=== PATIENT | female | born 1955 | race Asian ===

== ENCOUNTER 2017-10-21 07:53 | Day surgery (SDC) | payer OTHER ==
[~2017-10-21] VITALS: Ht 160 cm; Wt 55.6 kg
[~2017-10-21 07:53] MED LIST: CLOB.05TO; GLIM2; LEVSOD100; LOVA40; METF500; Omeprazole20 M1; PIOG15; RANI150
[2017-10-21] MEDS ORDERED: RANI150 (08:27)
[2017-10-21] MEDS ORDERED: SITA100T2 (08:28)
[2017-10-21] MEDS ORDERED: LANSOPRAZOLE15 MG (08:28)
== END 2017-10-21 10:32 | disposition home or self-care (01) ==
LOC: ORSCSDS 07:53
PROVIDERS: Internal Medicine Gastroenterology
PROC: 0DB68ZX Excision of Stomach, Via Natural or Artificial Opening Endoscopic, Diagnostic (ICD-10-PCS; principal; 2017-10-21 09:15)
PROC: 0DBN8ZX Excision of Sigmoid Colon, Via Natural or Artificial Opening Endoscopic, Diagnostic (ICD-10-PCS; principal; 2017-10-21 09:15)
PROC: 0DB98ZX Excision of Duodenum, Via Natural or Artificial Opening Endoscopic, Diagnostic (ICD-10-PCS; principal; 2017-10-21 09:15)
PROC: 0DBK8ZX Excision of Ascending Colon, Via Natural or Artificial Opening Endoscopic, Diagnostic (ICD-10-PCS; principal; 2017-10-21 09:15)
PROC: 0DBL8ZX Excision of Transverse Colon, Via Natural or Artificial Opening Endoscopic, Diagnostic (ICD-10-PCS; principal; 2017-10-21 09:15)
PROC: 0DBP8ZX Excision of Rectum, Via Natural or Artificial Opening Endoscopic, Diagnostic (ICD-10-PCS; principal; 2017-10-21 09:15)
DX: D50.9 Iron deficiency anemia, unspecified (principal); K31.7 Polyp of stomach and duodenum; K25.9 Gastric ulcer, unspecified as acute or chronic, without hemorrhage or perforation; D12.3 Benign neoplasm of transverse colon; D12.2 Benign neoplasm of ascending colon; D12.5 Benign neoplasm of sigmoid colon; D12.8 Benign neoplasm of rectum; K57.30 Diverticulosis of large intestine without perforation or abscess without bleeding; K64.8 Other hemorrhoids; E11.9 Type 2 diabetes mellitus without complications; Z79.899 Other long term (current) drug therapy
CPT/HCPCS: 82947; 88305; 88341; 88342; J0330; J2405; J7120

== ENCOUNTER → 2017-11-05 | Outpatient (CLI) | payer OTHER ==
[~2017-11-05] MED LIST changes: +LANSOPRAZOLE15 MG; +SITA100T2
== END | disposition home or self-care (01) ==
LOC: LAB EV 08:45
DX: D50.9 Iron deficiency anemia, unspecified (principal)
CPT/HCPCS: 87177; 87209

== ENCOUNTER 2018-12-06 08:50 | Day surgery (SDC) | payer OTHER ==
[~2018-12-06] VITALS: Ht 160 cm; Wt 56.4 kg
== END 2018-12-06 10:38 | disposition home or self-care (01) ==
LOC: ORSCSDS 08:50
PROVIDERS: Internal Medicine Gastroenterology
PROC: 0DB98ZX Excision of Duodenum, Via Natural or Artificial Opening Endoscopic, Diagnostic (ICD-10-PCS; principal; 2018-12-06 10:15)
PROC: 0DB68ZX Excision of Stomach, Via Natural or Artificial Opening Endoscopic, Diagnostic (ICD-10-PCS; principal; 2018-12-06 10:15)
DX: K29.70 Gastritis, unspecified, without bleeding (principal); K31.7 Polyp of stomach and duodenum; K30 Functional dyspepsia; E11.9 Type 2 diabetes mellitus without complications; E03.9 Hypothyroidism, unspecified; Z80.0 Family history of malignant neoplasm of digestive organs; Z79.899 Other long term (current) drug therapy
CPT/HCPCS: 82947; 88305; 88341; 88342; J2704; J7120

== ENCOUNTER → 2020-08-08 | Outpatient (CLI) | payer OTHER ==
[2020-08-08 13:50] LABS: BASOPHILS ABSOLUTE AUTO 0.03 K/mm3 (0.00-0.23); BASOPHILS PERCENT AUTO 0 % (0-2); EOSINOPHILS ABSOLUTE AUTO 0.14 K/mm3 (0.00-0.68); EOSINOPHILS PERCENT AUTO 2 % (0-6); Hematocrit 36.6 % (33.0-51.0); Hemoglobin 12.3 g/dL (11.5-16.0); IMMATURE GRAN ABSOLUTE AUTO 0.06 K/mm3 (0.00-0.10); IMMATURE GRAN PERCENT AUTO 1 % (0-1); LYMPHOCYTES ABSOLUTE AUTO 3.49 K/mm3 (0.84-5.20); LYMPHOCYTES PERCENT AUTO 44 % (21-46); MONOCYTES PERCENT AUTO 6 % (4-13); Mean Corpuscular HGB 30.1 pg (26.0-34.0); Mean Corpuscular HGB Conc 33.6 g/dL (31.5-36.5); Mean Corpuscular Volume 90 fL (80-100); Mean Platelet Volume 10.2 fL (9.1-12.4); NEUTROPHILS ABSOLUTE AUTO 3.76 K/mm3 (1.96-9.15); NEUTROPHILS PERCENT AUTO 47 % (41-73); Platelet Count 225 K/mm3 (150-400); RDW Standard Deviation 42.2 fL (35.1-46.3); Red Blood Cell Count 4.09 M/mm3 (3.80-5.20); White Blood Cell Count 7.98 K/mm3 (4.00-11.30)
[2020-08-08 14:26] LABS: Alanine Aminotransfer (ALT/SGP 41 U/L (12-78); Albumin, Blood 3.7 g/dL (3.4-5.0); Alk Phos 88 U/L (50-136); Anion Gap 8 mmol/L (6-16); Aspartate Aminotrans (AST/SGOT 62 U/L (12-37); Bilirubin, Total 0.4 mg/dL (0.1-1.0); Blood Urea Nitrogen 9 mg/dL (8-24); Bun/Creatinine Ratio 12.5 (12.0-20.0); CO2, Blood 24 mmol/L (21-32); Calcium, Blood 9.1 mg/dL (8.5-10.1); Chloride, Blood 102 mmol/L (98-108); Creatinine, Blood 0.72 mg/dL (0.40-1.00); Globulin, Blood 3.8 g/dL (2.2-4.0); Glomerular Filtration Rate >60 (60-); Glucose, Blood 182 mg/dL (70-99); Potassium, Blood 4.2 mmol/L (3.5-5.5); Sodium, Blood 134 mmol/L (136-145); Total Protein, Blood 7.5 g/dL (6.4-8.2); Troponin I <0.015 ng/mL (0.000-0.040)
== END ==
LOC: PLD 13:43 → LAB SHORT 13:43
PROVIDERS: Physician Assistant
DX: R07.9 Chest pain, unspecified (principal); R53.83 Other fatigue
CPT/HCPCS: 80053; 83690; 84484; 85025; 85379

== ENCOUNTER → 2022-12-01 | Outpatient (CLI) | payer OTHER | END | disposition home or self-care (01) | LOC: LAB SHORT 14:41 → LAB 14:41 | DX: N39.0 Urinary tract infection, site not specified (principal) | CPT/HCPCS: 87077; 87086; 87186 ==

== ENCOUNTER 2022-12-26 12:04 | Emergency (ER) | payer OTHER ==
[~2022-12-26] VITALS: Ht 160 cm; Wt 54.4 kg
[~2022-12-26 12:04] MED LIST changes: +LEVAQUIN750 MG PO
[2022-12-26 12:55] LABS: BASOPHILS ABSOLUTE AUTO 0.02 K/mm3 (0.00-0.23); BASOPHILS PERCENT AUTO 0 % (0-2); EOSINOPHILS ABSOLUTE AUTO 0.06 K/mm3 (0.00-0.68); EOSINOPHILS PERCENT AUTO 1 % (0-6); Hematocrit 31.1 % (33.0-51.0); Hemoglobin 10.5 g/dL (11.5-16.0); IMMATURE GRAN ABSOLUTE AUTO 0.06 K/mm3 (0.00-0.10); IMMATURE GRAN PERCENT AUTO 1 % (0-1); LYMPHOCYTES ABSOLUTE AUTO 2.19 K/mm3 (0.84-5.20); LYMPHOCYTES PERCENT AUTO 26 % (21-46); MONOCYTES ABSOLUTE AUTO 0.53 K/mm3 (0.16-1.47); MONOCYTES PERCENT AUTO 6 % (4-13); Mean Corpuscular HGB 27.3 pg (26.0-34.0); Mean Corpuscular HGB Conc 33.8 g/dL (31.5-36.5); Mean Corpuscular Volume 81 fL (80-100); Mean Platelet Volume 9.5 fL (9.1-12.4); NEUTROPHILS ABSOLUTE AUTO 5.71 K/mm3 (1.96-9.15); NEUTROPHILS PERCENT AUTO 67 % (41-73); Platelet Count 295 K/mm3 (150-400); RDW Coefficient Variation 14.5 % (11.7-14.2); RDW Standard Deviation 43.1 fL (35.1-46.3); Red Blood Cell Count 3.84 M/mm3 (3.80-5.20); White Blood Cell Count 8.57 K/mm3 (4.00-11.30)
[2022-12-26 13:15] LABS: Albumin, Blood 3.4 g/dL (3.4-5.0); Albumin/Globulin Ratio 0.8 (0.8-1.8); Bilirubin, Total 0.4 mg/dL (0.1-1.0); Bun/Creatinine Ratio 15.9 (12.0-20.0); Calcium, Blood 9.4 mg/dL (8.5-10.1); Creatinine, Blood 0.88 mg/dL (0.40-1.00); Globulin, Blood 4.5 g/dL (2.2-4.0); Potassium, Blood 4.2 mmol/L (3.5-5.5); Total Protein, Blood 7.9 g/dL (6.4-8.2)
[2022-12-26 14:09] LABS: Source, Urine Voided
[2022-12-26 14:18] LABS: Bilirubin, Urine Neg (Neg); Blood, Urine Neg (Neg); Color, Urine Yellow (P-Yellow); Glucose Qualitative, Urine 1+ (Neg); Ketones, Urine Neg (Neg); Leukocyte Esterase, Urine 1+ (Neg); Nitrite, Urine Neg (Neg); Protein, Urine Neg (Neg); Urobilinogen, Urine NORM (Normal)
[2022-12-26 14:26] LABS: Influenza A, PCR NEGATIVE (NEGATIVE); Influenza B, PCR NEGATIVE (NEGATIVE); Resp Syncytial Virus, PCR NEGATIVE (NEGATIVE); SARS-Cov-2 (COVID-19) PCR, MMC NEGATIVE (NEGATIVE)
[2022-12-26 14:37] LABS: Appearance, Urine Clear (Clear); Bacteria Mod /hpf; Red Blood Cells, Urine 0-2 /hpf (0-2); Squamous Epithelial Cells Rare /hpf (Few); White Blood Cells, Urine 0-2 /hpf (0-5)
[2022-12-26] MEDS ORDERED: HYDHCL25 PO (15:48)
[2022-12-26 15:50] VITALS: BP 124/79
== END 2022-12-26 16:02 | disposition home or self-care (01) ==
LOC: ER 12:04
PROVIDERS: Emergency Medicine
DX: R06.02 Shortness of breath (principal); E03.9 Hypothyroidism, unspecified; E11.9 Type 2 diabetes mellitus without complications; E78.5 Hyperlipidemia, unspecified; Z20.822 Contact with and (suspected) exposure to COVID-19; Z79.890 Hormone replacement therapy; Z79.84 Long term (current) use of oral hypoglycemic drugs
CPT/HCPCS: 0241U; 71045; 80053; 81001; 83880; 84484; 85025; 85379; 87086; 93005; 93010; 99284-25

== ENCOUNTER → 2023-01-01 | Outpatient (CLI) | payer OTHER ==
[~2023-01-01] MED LIST changes: +HYDHCL25 PO
== END | disposition home or self-care (01) ==
LOC: LAB 16:54 → LAB SHORT 16:54
DX: N39.0 Urinary tract infection, site not specified (principal)
CPT/HCPCS: 87086

== ENCOUNTER → 2023-10-12 | Outpatient (CLI) | payer OTHER ==
[~2023-10-12] MED LIST changes: +AMOCLA875 PO; +Amoxicillin500 MG PO; +LANS15EC PO; -LANSOPRAZOLE15 MG; +LANSOPRAZOLE15 MG PO; +LEVSOD75 PO; +LOSA25 PO; -LOVA40; +LOVA40 PO; -METF500; +METF500 PO; +NYSTATIN100000 U13 PO; -PIOG15; +PIOG15 PO; +TOUJEO MAX300 UNIT/2
[2023-10-12 11:05] LABS: Source, Urine Clean Catch
[2023-10-12 11:19] LABS: Bacteria Not Seen /hpf; Red Blood Cells, Urine Not Seen /hpf (0-2); Squamous Epithelial Cells Few /hpf (Few); White Blood Cells, Urine 0-2 /hpf (0-5)
== END | disposition home or self-care (01) ==
LOC: LAB 11:03 → LAB SHORT 11:03
PROVIDERS: Physician Assistant Medical
DX: R30.0 Dysuria (principal)
CPT/HCPCS: 81015

== ENCOUNTER 2023-10-27 13:12 | Emergency (ER) | payer OTHER ==
[~2023-10-27] VITALS: Ht 160 cm; Wt 54.4 kg
[~2023-10-27 13:12] MED LIST changes: -AMOCLA875 PO; -Amoxicillin500 MG PO; -LANS15EC PO; -LEVSOD75 PO; -LOSA25 PO; -NYSTATIN100000 U13 PO; -TOUJEO MAX300 UNIT/2
[2023-10-27 13:21] VITALS: BP 181/95
[2023-10-27] MEDS ORDERED: Amoxicillin500 MG PO (13:30)
[2023-10-27] MEDS ORDERED: NYSTATIN100000 U13 PO (13:38)
[2023-10-27] MEDS ORDERED: AMOCLA875 PO (13:53)
[2023-10-27] MEDS ORDERED: LEVSOD75 PO (14:29)
[2023-10-27] MEDS ORDERED: LOSA25 PO (14:29)
[2023-10-27] MEDS ORDERED: LANS15EC PO (14:29)
[2023-10-27] MEDS ORDERED: TOUJEO MAX300 UNIT/2 (14:29)
== END 2023-10-27 13:44 | disposition home or self-care (01) ==
LOC: ER 13:12
DX: B37.0 Candidal stomatitis (principal); K04.7 Periapical abscess without sinus; Z79.899 Other long term (current) drug therapy; Z79.84 Long term (current) use of oral hypoglycemic drugs; Z79.4 Long term (current) use of insulin; E03.9 Hypothyroidism, unspecified; E11.9 Type 2 diabetes mellitus without complications; E78.5 Hyperlipidemia, unspecified
CPT/HCPCS: 99282

== ENCOUNTER → 2023-12-16 | Outpatient (CLI) | payer OTHER ==
[~2023-12-16] MED LIST changes: +AMOCLA875 PO; +Amoxicillin500 MG PO; +LANS15EC PO; +LEVSOD75 PO; +LOSA25 PO; +NYSTATIN100000 U13 PO; +TOUJEO MAX300 UNIT/2
[2023-12-16 16:11] LABS: BASOPHILS ABSOLUTE AUTO 0.03 K/mm3 (0.00-0.23); BASOPHILS PERCENT AUTO 0 % (0-2); EOSINOPHILS ABSOLUTE AUTO 0.12 K/mm3 (0.00-0.68); EOSINOPHILS PERCENT AUTO 1 % (0-6); Hematocrit 31.6 % (33.0-51.0); Hemoglobin 10.4 g/dL (11.5-16.0); IMMATURE GRAN ABSOLUTE AUTO 0.07 K/mm3 (0.00-0.10); IMMATURE GRAN PERCENT AUTO 1 % (0-1); LYMPHOCYTES ABSOLUTE AUTO 3.11 K/mm3 (0.84-5.20); LYMPHOCYTES PERCENT AUTO 29 % (21-46); MONOCYTES ABSOLUTE AUTO 0.72 K/mm3 (0.16-1.47); MONOCYTES PERCENT AUTO 7 % (4-13); Mean Corpuscular HGB 30.5 pg (26.0-34.0); Mean Corpuscular HGB Conc 32.9 g/dL (31.5-36.5); Mean Corpuscular Volume 93 fL (80-100); Mean Platelet Volume 9.3 fL (9.1-12.4); NEUTROPHILS ABSOLUTE AUTO 6.66 K/mm3 (1.96-9.15); NEUTROPHILS PERCENT AUTO 62 % (41-73); Platelet Count 407 K/mm3 (150-400); RDW Coefficient Variation 13.7 % (11.7-14.2); RDW Standard Deviation 44.7 fL (35.1-46.3); Red Blood Cell Count 3.41 M/mm3 (3.80-5.20); White Blood Cell Count 10.71 K/mm3 (4.00-11.30)
[2023-12-16 16:27] LABS: Albumin, Blood 3.6 g/dL (3.4-5.0); Albumin/Globulin Ratio 0.7 (0.8-1.8); Bilirubin, Total 0.3 mg/dL (0.1-1.0); Bun/Creatinine Ratio 23.7 (12.0-20.0); Calcium, Blood 9.9 mg/dL (8.5-10.1); Creatinine, Blood 1.35 mg/dL (0.40-1.00); Globulin, Blood 4.9 g/dL (2.2-4.0); Potassium, Blood 4.5 mmol/L (3.5-5.5); Total Protein, Blood 8.5 g/dL (6.4-8.2)
== END ==
LOC: LAB SHORT 16:07 → LAB 16:07
PROVIDERS: Physician Assistant
DX: E86.0 Dehydration (principal)
CPT/HCPCS: 80053; 85025

== ENCOUNTER → 2024-01-16 | Outpatient (CLI) | payer OTHER ==
[2024-01-16 10:44] LABS: BASOPHILS ABSOLUTE AUTO 0.04 K/mm3 (0.00-0.23); BASOPHILS PERCENT AUTO 0 % (0-2); EOSINOPHILS ABSOLUTE AUTO 0.17 K/mm3 (0.00-0.68); EOSINOPHILS PERCENT AUTO 2 % (0-6); Hematocrit 31.9 % (33.0-51.0); Hemoglobin 10.2 g/dL (11.5-16.0); IMMATURE GRAN ABSOLUTE AUTO 0.06 K/mm3 (0.00-0.10); IMMATURE GRAN PERCENT AUTO 1 % (0-1); LYMPHOCYTES ABSOLUTE AUTO 1.93 K/mm3 (0.84-5.20); LYMPHOCYTES PERCENT AUTO 19 % (21-46); MONOCYTES ABSOLUTE AUTO 0.69 K/mm3 (0.16-1.47); MONOCYTES PERCENT AUTO 7 % (4-13); Mean Corpuscular HGB 31.3 pg (26.0-34.0); Mean Corpuscular Volume 98 fL (80-100); NEUTROPHILS ABSOLUTE AUTO 7.06 K/mm3 (1.96-9.15); NEUTROPHILS PERCENT AUTO 71 % (41-73); Platelet Count 313 K/mm3 (150-400); RDW Coefficient Variation 15.8 % (11.7-14.2); RDW Standard Deviation 56.5 fL (35.1-46.3); Red Blood Cell Count 3.26 M/mm3 (3.80-5.20); White Blood Cell Count 9.95 K/mm3 (4.00-11.30)
[2024-01-16 10:54] LABS: Albumin, Blood 3.2 g/dL (3.4-5.0); Albumin/Globulin Ratio 0.7 (0.8-1.8); Bilirubin, Total 0.4 mg/dL (0.1-1.0); Calcium, Blood 9.3 mg/dL (8.5-10.1); Creatinine, Blood 1.21 mg/dL (0.40-1.00); Globulin, Blood 4.9 g/dL (2.2-4.0); Magnesium, Blood 1.9 mg/dL (1.6-2.4); Potassium, Blood 4.6 mmol/L (3.5-5.5); Total Protein, Blood 8.1 g/dL (6.4-8.2)
== END | disposition home or self-care (01) ==
LOC: LAB 10:39 → LAB SHORT 10:39
PROVIDERS: Hospitalist
DX: N17.9 Acute kidney failure, unspecified (principal)
CPT/HCPCS: 80053; 83735; 85025

== ENCOUNTER → 2024-03-22 | Outpatient (CLI) | payer OTHER ==
[~2024-03-22] MED LIST changes: +ACET500 PO; +Diflucan100 MG PO; +GABAPENTIN PT; +OMEP20ER PO; +PANT40 PO; +PANTOPRAZOLE SO40 M2; +TRAM50 PO
[2024-03-22 10:09] LABS: BASOPHILS ABSOLUTE AUTO 0.04 K/mm3 (0.00-0.23); BASOPHILS PERCENT AUTO 0 % (0-2); EOSINOPHILS ABSOLUTE AUTO 0.14 K/mm3 (0.00-0.68); EOSINOPHILS PERCENT AUTO 1 % (0-6); Hemoglobin 10.8 g/dL (11.5-16.0); IMMATURE GRAN ABSOLUTE AUTO 0.05 K/mm3 (0.00-0.10); IMMATURE GRAN PERCENT AUTO 0 % (0-1); LYMPHOCYTES ABSOLUTE AUTO 0.87 K/mm3 (0.84-5.20); LYMPHOCYTES PERCENT AUTO 7 % (21-46); MONOCYTES ABSOLUTE AUTO 0.81 K/mm3 (0.16-1.47); MONOCYTES PERCENT AUTO 7 % (4-13); Mean Corpuscular HGB 30.9 pg (26.0-34.0); Mean Corpuscular HGB Conc 33.8 g/dL (31.5-36.5); Mean Corpuscular Volume 91 fL (80-100); Mean Platelet Volume 9.4 fL (9.1-12.4); NEUTROPHILS ABSOLUTE AUTO 9.88 K/mm3 (1.96-9.15); NEUTROPHILS PERCENT AUTO 84 % (41-73); Platelet Count 357 K/mm3 (150-400); RDW Coefficient Variation 12.2 % (11.7-14.2); RDW Standard Deviation 40.6 fL (35.1-46.3); White Blood Cell Count 11.79 K/mm3 (4.00-11.30)
[2024-03-22 10:27] LABS: Albumin, Blood 3.1 g/dL (3.4-5.0); Albumin/Globulin Ratio 0.6 (0.8-1.8); Bilirubin, Total 0.3 mg/dL (0.1-1.0); Bun/Creatinine Ratio 18.3 (12.0-20.0); Calcium, Blood 9.4 mg/dL (8.5-10.1); Creatinine, Blood 1.26 mg/dL (0.40-1.00); Globulin, Blood 5.1 g/dL (2.2-4.0); Potassium, Blood 4.4 mmol/L (3.5-5.5); Thyroid Stimulating Hormone 4.524 uIU/mL (0.360-4.800); Total Protein, Blood 8.2 g/dL (6.4-8.2)
[2024-03-22 10:33] LABS: Bun/Creatinine Ratio 19.4 (12.0-20.0); Calcium, Blood 9.4 mg/dL (8.5-10.1); Creatinine, Blood 1.24 mg/dL (0.40-1.00); Potassium, Blood 4.4 mmol/L (3.5-5.5)
[2024-03-22 11:59] LABS: Hematocrit 32.5 % (33.0-51.0); Hemoglobin 10.8 g/dL (11.5-16.0); Mean Corpuscular HGB 30.3 pg (26.0-34.0); Mean Corpuscular HGB Conc 33.2 g/dL (31.5-36.5); Mean Corpuscular Volume 91 fL (80-100); Mean Platelet Volume 9.9 fL (9.1-12.4); Platelet Count 379 K/mm3 (150-400); RDW Coefficient Variation 11.9 % (11.7-14.2); RDW Standard Deviation 40.2 fL (35.1-46.3); Red Blood Cell Count 3.56 M/mm3 (3.80-5.20); White Blood Cell Count 12.04 K/mm3 (4.00-11.30)
[2024-03-22 12:14] LABS: International Normalized Ratio 0.97; Prothrombin Time Results 10.4 Sec (9.7-11.5)
[2024-03-22 13:00] LABS: BASOPHILS PERCENT MAN 0 % (0-2); EOSINOPHILS PERCENT MAN 0 % (0-6); LYMPHOCYTES PERCENT MAN 5 % (21-46); MONOCYTES ABSOLUTE MAN 0.36 K/mm3 (0.16-1.47); MONOCYTES PERCENT MAN 3 % (4-13); NEUTROPHILS ABSOLUTE MAN 11.07 K/mm3 (1.96-9.15); SEG NEUTROPHILS PERCENT MAN 92 % (41-73); TOTAL CELLS COUNTED 100
== END ==
LOC: LAB SHORT 10:02 → LAB 10:02
PROVIDERS: Physician Assistant; Student in an Organized Health Care Education/Training Program
DX: E11.69 Type 2 diabetes mellitus with other specified complication (principal); R42 Dizziness and giddiness; R53.83 Other fatigue; C02.9 Malignant neoplasm of tongue, unspecified; R63.8 Other symptoms and signs concerning food and fluid intake
CPT/HCPCS: 80048; 80053; 83036; 83690; 84443; 85007; 85025; 85027; 85610

== ENCOUNTER 2024-03-23 07:59 | Day surgery (SDC) | payer OTHER ==
[~2024-03-23] VITALS: Ht 160 cm; Wt 53.0 kg
[2024-03-23] VITALS (8 sets, daily range): BP systolic 140–167; BP diastolic 77–99
[~2024-03-23 07:59] MED LIST changes: -PANTOPRAZOLE SO40 M2
[2024-03-23] MEDS ORDERED: PANTOPRAZOLE SO40 M2 (08:40)
[2024-03-23] MEDS ORDERED: LORazepam 2 MG/ML 1ML Injection ONE (09:11)
[2024-03-23] MEDS ORDERED: FentaNYL Citrate 50 MCG/ML 2 ML Injection ONE ×2 (09:41→10:22)
[2024-03-23] MEDS ORDERED: Midazolam HCl 1MG / ML 2ML Vial ONE ×2 (09:41→10:21)
[2024-03-23] MEDS ORDERED: NS 1,000 ML IV ONE (09:41)
[2024-03-23] MEDS ORDERED: NS 100 ML IV ONE (10:08)
[2024-03-23] MEDS ORDERED: CeFAZolin Sodium 2,000 MG VIAL ONE (10:08)
[2024-03-23] MEDS ORDERED: Glucagon 1 MG/KIT VIAL IV ONE (10:10)
[2024-03-23] MEDS ORDERED: Lidocaine 2%-Epineph 1:100000 20 ML MDV ONE (10:28)
--- NOTE | 2024-03-23 11:00 | NUR ---
PT BACK TO RECOVERY ROOM. PT DAUGHTER IN LAW AT BEDSIDE. DR ALVARENGA PT AND FAMILY ON PLAN OF CARE AND PROCEDURE.
[2024-03-23] MEDS ORDERED: LORazepam 2 MG/ML 1ML Injection IV ONE (11:30)
--- NOTE | 2024-03-23 12:30 | NUR ---
PT FAMILY EDUCATED ABOUT G TUBE FEEDING AND GIVEN ADDITIONAL SUPPLIES. PT HAS ABDOMIAL DISCOMFORT. DR MARADIAGA NOTIFEID AND PT EDUCATED THAT PAIN IS NORMAL AND SHE CAN TAKE DISSOLVED HOME MEDICATIONS PO NEEDED. IV D/C CATHETER INTACT. 1000 ML NS INFUSION FINISHED. PT DRESSED AND WHEELED OUT TO CAR.
== END 2024-03-23 14:57 | disposition home or self-care (01) ==
LOC: MHTC 07:59
PROC: 0DH63UZ Insertion of Feeding Device into Stomach, Percutaneous Approach (ICD-10-PCS; principal; 2024-03-23)
DX: C02.9 Malignant neoplasm of tongue, unspecified (principal); I12.9 Hypertensive chronic kidney disease with stage 1 through stage 4 chronic kidney disease, or unspecified chronic kidney disease; E11.22 Type 2 diabetes mellitus with diabetic chronic kidney disease; N18.2 Chronic kidney disease, stage 2 (mild); K21.9 Gastro-esophageal reflux disease without esophagitis; E78.5 Hyperlipidemia, unspecified; E03.9 Hypothyroidism, unspecified; Z87.891 Personal history of nicotine dependence; Z88.8 Allergy status to other drugs, medicaments and biological substances; Z79.890 Hormone replacement therapy; Z79.4 Long term (current) use of insulin; Z79.899 Other long term (current) drug therapy
CPT/HCPCS: 82947; 99152; 99153; C1725; C1769; C1887; J0690; J1610; J2060; J2250; J3010; J7030; Q9967

== ENCOUNTER 2024-03-26 02:02 | Day surgery (SDC) | payer OTHER ==
[~2024-03-26 02:02] MED LIST changes: +PANTOPRAZOLE SO40 M2
[2024-03-26] MEDS ORDERED: NS 1,000 ML IV SCH (07:15)
[2024-03-26 09:00] VITALS: BP 167/88
== END 2024-03-26 10:14 | disposition home or self-care (01) ==
LOC: ATC 02:02
DX: C02.9 Malignant neoplasm of tongue, unspecified (principal); R13.10 Dysphagia, unspecified; D46.4 Refractory anemia, unspecified; K21.9 Gastro-esophageal reflux disease without esophagitis; N17.9 Acute kidney failure, unspecified; E11.22 Type 2 diabetes mellitus with diabetic chronic kidney disease; N18.2 Chronic kidney disease, stage 2 (mild); E03.9 Hypothyroidism, unspecified; E78.5 Hyperlipidemia, unspecified; Z79.899 Other long term (current) drug therapy; Z79.84 Long term (current) use of oral hypoglycemic drugs
CPT/HCPCS: 96360; J7030

== ENCOUNTER → 2024-04-07 | Outpatient (CLI) | payer OTHER ==
[2024-04-07 14:38] LABS: Creatinine, Urine Random 74.4 mg/dL (27.00-270.00)
[2024-04-07 14:40] LABS: Microalb/Creat Ratio UR, Rand 63.575 mg/g (0.000-30.000); Microalbumin, Random Urine 47.3 mg/L (0.000-20.000)
== END ==
LOC: LAB 10:40 → LAB SHORT 10:40
PROVIDERS: Family Medicine
DX: E11.59 Type 2 diabetes mellitus with other circulatory complications (principal); E11.29 Type 2 diabetes mellitus with other diabetic kidney complication; E11.22 Type 2 diabetes mellitus with diabetic chronic kidney disease; Z79.4 Long term (current) use of insulin
CPT/HCPCS: 82043; 82570

== ENCOUNTER 2024-04-09 01:13 | Day surgery (SDC) | payer OTHER ==
[2024-04-09] MEDS ORDERED: NS 1,000 ML IV SCH (07:55)
[2024-04-09 08:28] VITALS: BP 153/80
== END 2024-04-09 09:45 | disposition home or self-care (01) ==
LOC: ATC 01:13
DX: C02.9 Malignant neoplasm of tongue, unspecified (principal); R13.10 Dysphagia, unspecified; D46.4 Refractory anemia, unspecified; Z79.84 Long term (current) use of oral hypoglycemic drugs; Z79.899 Other long term (current) drug therapy; Z88.8 Allergy status to other drugs, medicaments and biological substances
CPT/HCPCS: 96360; J7030

== ENCOUNTER 2024-08-30 10:33 | Day surgery (SDC) | payer OTHER ==
[~2024-08-30] VITALS: Ht 160 cm; Wt 55.3 kg
[~2024-08-30 10:33] MED LIST changes: +INSULANPEN SC; +NOVOLOG FL100 UNIT/3 SC
[2024-08-30 10:45] VITALS: BP 160/83
[2024-08-30 10:55] VITALS: BP 159/88
[2024-08-30 11:00] VITALS: BP 156/86
[2024-08-30 11:15] VITALS: BP 136/87
[2024-08-30] MEDS ORDERED: Lidocaine 2% Jelly Uro-Jet ONE (11:27)
[2024-08-30] MEDS ORDERED: OXYC1L PO (11:49)
[2024-08-30] MEDS ORDERED: Acetaminophen 500 MG Tab PO ONE (11:55)
[2024-08-30] MEDS ORDERED: Acetaminophen 325 MG TABLET ONE (11:57)
[2024-08-30] MEDS ORDERED: Acetaminophen 325 MG TABLET PO ONE (12:00)
[2024-08-30 12:04] VITALS: BP 160/83
--- NOTE | 2024-08-30 12:44 | NUR ---
PATIENT ADMITTED TO [facility] FOR GTUBE EXCHANGE. PATIENT NON-PORTUGUESE SPEAKING AND HAS TWO PORTUGUESE SPEAKING FAMILY MEMBERS WITH HER. FAMILY CONCERNED ABOUT PATIENT BEING DEHYDRATED. THEY STATE SHE HAS HAD DIARRHEA SINCE CHEMO A COUPLE DAYS AGO. PT HEART RATE 137, TEMP 101.4. DR MARADIAGA NOTIFIED. PROCEDURE COMPLETED WITHOUT IV. DR MARADIAGA RECOMMENDED PATIENT BE EVALUATED IN ER POST PROCEDURE. PT AND FAMILY AGREE. TYLENOL GIVEN VIA GTUBE POST PROCEDURE PER DR MARADIAGA. PATIENT ESCORTED DOWN TO ER VIA WHEELCHAIR BY ZACKARY HORVATH AT 1205 W FAMILY AT SIDE.
[2024-08-30] MEDS ORDERED: SULTRIDS PO (17:52)
== END 2024-08-30 12:05 | disposition home or self-care (01) ==
LOC: MHTC 10:33
DX: Z43.1 Encounter for attention to gastrostomy (principal); C02.9 Malignant neoplasm of tongue, unspecified
CPT/HCPCS: 49450; A9270; Q9967

== ENCOUNTER 2024-09-01 11:48 | Inpatient (IN) | payer OTHER ==
[~2024-09-01] VITALS: Ht 154.9 cm; Wt 54.7 kg
[~2024-09-01 11:48] MED LIST changes: +OXYC1L PO; +SULTRIDS PO
[2024-09-01 14:58] LABS: BASOPHILS ABSOLUTE AUTO 0.05 K/mm3 (0.00-0.23); BASOPHILS PERCENT AUTO 1 % (0-2); EOSINOPHILS ABSOLUTE AUTO 0.03 K/mm3 (0.00-0.68); EOSINOPHILS PERCENT AUTO 0 % (0-6); Hematocrit 29.6 % (33.0-51.0); Hemoglobin 10.1 g/dL (11.5-16.0); IMMATURE GRAN ABSOLUTE AUTO 0.18 K/mm3 (0.00-0.10); IMMATURE GRAN PERCENT AUTO 2 % (0-1); LYMPHOCYTES ABSOLUTE AUTO 1.13 K/mm3 (0.84-5.20); LYMPHOCYTES PERCENT AUTO 12 % (21-46); MONOCYTES ABSOLUTE AUTO 1.21 K/mm3 (0.16-1.47); MONOCYTES PERCENT AUTO 12 % (4-13); Mean Corpuscular HGB 31.2 pg (26.0-34.0); Mean Corpuscular HGB Conc 34.1 g/dL (31.5-36.5); Mean Corpuscular Volume 91 fL (80-100); Mean Platelet Volume 8.8 fL (9.1-12.4); NEUTROPHILS ABSOLUTE AUTO 7.19 K/mm3 (1.96-9.15); NEUTROPHILS PERCENT AUTO 74 % (41-73); Platelet Count 360 K/mm3 (150-400); RDW Coefficient Variation 12.8 % (11.7-14.2); RDW Standard Deviation 42.1 fL (35.1-46.3); Red Blood Cell Count 3.24 M/mm3 (3.80-5.20); White Blood Cell Count 9.79 K/mm3 (4.00-11.30)
[2024-09-01 15:24] LABS: Albumin, Blood 3.1 g/dL (3.4-5.0); Albumin/Globulin Ratio 0.7 (0.8-1.8); Bilirubin, Total 0.2 mg/dL (0.1-1.0); Bun/Creatinine Ratio 30.3 (12.0-20.0); Calcium, Blood 9.1 mg/dL (8.5-10.1); Creatinine, Blood 0.89 mg/dL (0.40-1.00); Globulin, Blood 4.5 g/dL (2.2-4.0); Potassium, Blood 4.5 mmol/L (3.5-5.5); Total Protein, Blood 7.6 g/dL (6.4-8.2)
[2024-09-01] MEDS ORDERED: Piperacillin/Tazobactam Sod 4.5 GM in NS 100 ML IV ONE (15:35)
[2024-09-01] MEDS ORDERED: Lactated Ringer's 1,000 ML IV ONE (16:30)
[2024-09-01] MEDS ORDERED: FLU VACC TS2024-25(6MOS UP)/PF 45 MCG/0.5 ML SYRINGE IM PRN (16:55)
[2024-09-01 18:30] VITALS: BP 146/82
[2024-09-01] MEDS ORDERED: PANT40 PO (18:32)
[2024-09-01] MEDS ORDERED: NS 250 ML IV PRN (20:20)
[2024-09-01] MEDS ORDERED: Insulin Glargine-Yfgn 100 Unit/mL 3 ML SYR SC SCH (21:00)
[2024-09-01] MEDS ORDERED: Insulin Human Lispro 100 Units/ML 3ML Syringe SC SCH (21:00)
[2024-09-01] MEDS ORDERED: OxyCODONE HCL 5 MG TAB PO PRN (23:00)
[2024-09-01 23:24] VITALS: BP 139/73
[2024-09-02] MEDS ORDERED: Piperacillin/Tazobactam Sod 4.5 GM in NS 100 ML IV SCH
[2024-09-02 03:17] VITALS: BP 134/71
[2024-09-02] MEDS ORDERED: Acetaminophen 325 MG TABLET PO PRN (03:50)
[2024-09-02] MEDS ORDERED: Acetaminophen 160MG / 5ML 10.15 UDC PO PRN (04:00)
[2024-09-02] MEDS ORDERED: Pantoprazole Sodium 40 MG Tab PO SCH (06:00)
[2024-09-02] MEDS ORDERED: Pantoprazole Sodium 40 MG Injection IV SCH (06:00)
[2024-09-02] MEDS ORDERED: Levothyroxine Sodium 0.075 MG Tab PO SCH (06:00)
[2024-09-02 06:19] LABS: BASOPHILS ABSOLUTE AUTO 0.04 K/mm3 (0.00-0.23); BASOPHILS PERCENT AUTO 1 % (0-2); EOSINOPHILS ABSOLUTE AUTO 0.02 K/mm3 (0.00-0.68); EOSINOPHILS PERCENT AUTO 0 % (0-6); Hematocrit 27.6 % (33.0-51.0); Hemoglobin 9.3 g/dL (11.5-16.0); IMMATURE GRAN ABSOLUTE AUTO 0.14 K/mm3 (0.00-0.10); IMMATURE GRAN PERCENT AUTO 2 % (0-1); LYMPHOCYTES ABSOLUTE AUTO 0.84 K/mm3 (0.84-5.20); LYMPHOCYTES PERCENT AUTO 10 % (21-46); MONOCYTES ABSOLUTE AUTO 1.15 K/mm3 (0.16-1.47); MONOCYTES PERCENT AUTO 13 % (4-13); Mean Corpuscular HGB 30.2 pg (26.0-34.0); Mean Corpuscular HGB Conc 33.7 g/dL (31.5-36.5); Mean Corpuscular Volume 90 fL (80-100); Mean Platelet Volume 8.9 fL (9.1-12.4); NEUTROPHILS ABSOLUTE AUTO 6.43 K/mm3 (1.96-9.15); NEUTROPHILS PERCENT AUTO 75 % (41-73); Platelet Count 335 K/mm3 (150-400); RDW Standard Deviation 41.8 fL (35.1-46.3); Red Blood Cell Count 3.08 M/mm3 (3.80-5.20); White Blood Cell Count 8.62 K/mm3 (4.00-11.30)
[2024-09-02 06:40] LABS: Albumin, Blood 2.7 g/dL (3.4-5.0); Albumin/Globulin Ratio 0.6 (0.8-1.8); Bilirubin, Total 0.2 mg/dL (0.1-1.0); Bun/Creatinine Ratio 24.3 (12.0-20.0); Calcium, Blood 8.6 mg/dL (8.5-10.1); Creatinine, Blood 0.91 mg/dL (0.40-1.00); Globulin, Blood 4.3 g/dL (2.2-4.0); Potassium, Blood 4.4 mmol/L (3.5-5.5)
[2024-09-02 07:14] VITALS: BP 110/68
--- NOTE | 2024-09-02 07:44 | NUR ---
SHIFT SUMMARY PT A&Ox4. FAMILY AT BEDSIDE AND INTERPETS FOR PT. NPO D/T TOUNGE AND NECK CANCER. PT HAS PEG TUBE FOR NUTRITION AND MEDICATIONS. PT RECIEVING ZOYSIN PER EMAR FOR CELLULITIS OF NECK. WOUND HAS FOUL ODOR AND PURULENT DRAINAGE. PICTURES IN CHART. MEDICATED FOR PAIN PER EMAR, WITH GOOD EFFECT. VSS BUT PT IS TACY WHICH IS BASELINE PER FAMILY. SCD's IN PLACE. BED IN LOWEST POSITION AND CALL LIGHT IN REACH.
[2024-09-02] MEDS ORDERED: Enoxaparin 40 MG/0.4 ML SYR SC SCH (09:00)
[2024-09-02 11:36] VITALS: BP 116/76
[2024-09-02] MEDS ORDERED: BACTRIM DS TAB1 EAC6 PO (12:20)
[2024-09-02] MEDS ORDERED: Bisacodyl 10 MG Supp PR PRN (12:25)
[2024-09-02] MEDS ORDERED: Magnesium Hydroxide Conc 10 ML UDC PT PRN (12:25)
[2024-09-02] MEDS ORDERED: Docusate Sodium Liquid 100 MG UDC PT PRN (12:25)
--- NOTE | 2024-09-02 15:37 | NUR ---
Pt is awake and alert at beside with family. Pt and family member appear nervous about visit. Partner of pt's family member acts as a spokesperson for the rest that are either uncomfortable or incapable of communicating. I assure pt and family members that my interests are in broad spiritual matters rather than simply faith. Pt and family members still seem withdrawn and not receptive. I wished them well and departed when the attending nurse entered the room to provide care.
[2024-09-02 17:11] VITALS: BP 129/73
--- NOTE | 2024-09-02 17:47 | NUR ---
SHIFT SUMMARY PT AOX4, COOPERATIVE, ABLE TO MAKE NEEDS KNOWN. FAMILY PRESENT AT ALL TIMES DUE TO LANGUAGE BARRIER. FAMILY ASSISTS WITH TRANSLATION. PT DID EXPERIENCE PAIN OCCASIONALLY, MEDICATED PER EMAR. PEG TUBE INTACT. PT AND FAMILY WELL AWARE PROCESS OF FEEDING AND ASSIST WHEN NEEDED. PT AMBULATING TO BATHROOM APPROPRIATELY, AND WHEREING SCD'S WHEN IN BED. PT DID NOT CARE FOR LOVENOX INJECTION THIS MORNING. CBG HAVE BEEN AROUND 240-260 ALL SHIFT. BED IN LOWEST POSITION, CALL LIGHT WITHIN REACH.
[2024-09-02 19:06] VITALS: BP 130/68
[2024-09-02] MEDS ORDERED: Saline Nasal Spray 45 ML PRN (21:40)
[2024-09-02 23:13] VITALS: BP 110/98
[2024-09-03 05:22] VITALS: BP 141/80
--- NOTE | 2024-09-03 06:42 | NUR ---
SHIFT SUMMARY PT A&Ox4. FLAT EXPRESSION. FAMILY REMAINS AT BEDSIDE TO ASSIST WITH INTERPRETAION. MEDICATED FOR NECK PAIN PER EMAR WITH GOOD EFFECT. FAMILY ASSIST WITH PEG TUBE FEEDINGS WITH HOME NUTRITION. DIETITION IN TO SEE PT ON 09/02/24 AND ORDERS GIVEN. IV ABX GIVEN PER EMAR. VSS. BED IN LOWEST POSITION AND CALL LIGHT IN REACH.
[2024-09-03 07:18] VITALS: BP 136/76
[2024-09-03 07:23] LABS: BASOPHILS ABSOLUTE AUTO 0.02 K/mm3 (0.00-0.23); BASOPHILS PERCENT AUTO 0 % (0-2); EOSINOPHILS ABSOLUTE AUTO 0.06 K/mm3 (0.00-0.68); EOSINOPHILS PERCENT AUTO 1 % (0-6); Hematocrit 27.6 % (33.0-51.0); Hemoglobin 9.4 g/dL (11.5-16.0); IMMATURE GRAN PERCENT AUTO 2 % (0-1); LYMPHOCYTES ABSOLUTE AUTO 0.85 K/mm3 (0.84-5.20); LYMPHOCYTES PERCENT AUTO 10 % (21-46); MONOCYTES ABSOLUTE AUTO 1.18 K/mm3 (0.16-1.47); MONOCYTES PERCENT AUTO 13 % (4-13); Mean Corpuscular HGB 30.4 pg (26.0-34.0); Mean Corpuscular HGB Conc 34.1 g/dL (31.5-36.5); Mean Corpuscular Volume 89 fL (80-100); Mean Platelet Volume 8.8 fL (9.1-12.4); NEUTROPHILS ABSOLUTE AUTO 6.63 K/mm3 (1.96-9.15); NEUTROPHILS PERCENT AUTO 74 % (41-73); Platelet Count 348 K/mm3 (150-400); RDW Coefficient Variation 13.1 % (11.7-14.2); RDW Standard Deviation 42.2 fL (35.1-46.3); Red Blood Cell Count 3.09 M/mm3 (3.80-5.20); White Blood Cell Count 8.94 K/mm3 (4.00-11.30)
[2024-09-03 07:49] LABS: Bun/Creatinine Ratio 19.5 (12.0-20.0); Calcium, Blood 8.9 mg/dL (8.5-10.1); Creatinine, Blood 0.87 mg/dL (0.40-1.00); Phosphorus, Blood 3.3 mg/dL (2.5-4.9); Potassium, Blood 4.3 mmol/L (3.5-5.5)
[2024-09-03] MEDS ORDERED: AMOX-CLAV200 MG/5 M PO (14:30)
--- NOTE | 2024-09-03 14:51 | NUR ---
DISCHARGE NOTE MS BUCKNER SIGNED A CONSENT USING TELEPHONE SCALE EXPERT NUMBER [id number] THIS MORNING THAT HER PREFERENCE IS TO HAVE HER FAMILY TRANSLATE FOR HER. SHE HAS BEEN UP WITH FAMILY STAND BY ASSISTANCE TO THE BATHROOM TODAY. SHE C/O 5/10 INTERMITTANT NECK PAIN DOWN TO 0 AFTER TYLENOL AND ICE PACKS. HER DAUGHTER/DAUGHTER IN LAW HAVE BEEN WITH HER AT ALL TIMES. THEY ADMINISTERED THE GRAVITY FED TUBE FEED VIA PEG TUBE WHICH FLOWED WELL AND WAS TOLERATED WELL BY PT. BLOOD GLUCOSE 310, TIMED AFTER TUBE FEED UNFORTUNATELY IT HAD ALREADY BEEN GIVEN BY FAMILY. DR SMART NOTIFIED OF BLOOD GLUCOSE AND TREATED WITH SLIDING SCALE. ST ON TELEMETRY, NO CALLS FROM ELECTRONICS ENGINEERING TECHNICIAN. TELEMETRY AND PIV REMOVED PRIOR TO DISCHARGE. WRITTEN AND VERBAL DISCHARGE INSTRUCTIONS TO FAMILY WHO INTERPRETED FOR PT. NO NEW QUESTIONS OR CONCERNS PRIOR TO DISCHARGE. ASSISTED OUT BY SYDNEE IN W/C AT 1457HRS.
== END 2024-09-03 14:57 | disposition home or self-care (01) | DRG 603 ==
LOC: ER 11:48 → MEDS 19:06
PROVIDERS: Physician Assistant; ADMIT Internal Medicine
DX: L03.221 Cellulitis of neck (principal); E87.1 Hypo-osmolality and hyponatremia; Z16.20 Resistance to unspecified antibiotic; N39.0 Urinary tract infection, site not specified; Z43.1 Encounter for attention to gastrostomy; C76.0 Malignant neoplasm of head, face and neck; E11.22 Type 2 diabetes mellitus with diabetic chronic kidney disease; N18.2 Chronic kidney disease, stage 2 (mild); I12.9 Hypertensive chronic kidney disease with stage 1 through stage 4 chronic kidney disease, or unspecified chronic kidney disease; E03.9 Hypothyroidism, unspecified; R10.13 Epigastric pain; Z66 Do not resuscitate; Z90.710 Acquired absence of both cervix and uterus; Z90.49 Acquired absence of other specified parts of digestive tract; Z98.890 Other specified postprocedural states; Z88.8 Allergy status to other drugs, medicaments and biological substances; Z79.4 Long term (current) use of insulin; Z79.890 Hormone replacement therapy; Z79.899 Other long term (current) drug therapy; Z85.028 Personal history of other malignant neoplasm of stomach; E78.5 Hyperlipidemia, unspecified; D63.1 Anemia in chronic kidney disease; R50.9 Fever, unspecified; R22.1 Localized swelling, mass and lump, neck; Z87.891 Personal history of nicotine dependence; Z85.810 Personal history of malignant neoplasm of tongue; C02.9 Malignant neoplasm of tongue, unspecified; R79.1 Abnormal coagulation profile
CPT/HCPCS: 0202U; 36415; 49450; 70491; 71045; 80048; 80053; 81001; 82947; 83605; 83735; 84100; 85007; 85025; 85027; 85610; 87040; 87070; 87077; 87086; 87186; 87205; 96361; 96365; 96365-59; 96375; 99283-25; 99284-25; A9270; J0696; J1650; J1815; J1885; J2470; J2543; J7050; J7120; Q9967

== ENCOUNTER 2024-09-05 02:12 | Day surgery (SDC) | payer OTHER ==
[~2024-09-05 02:12] MED LIST changes: +AMOX-CLAV200 MG/5 M PO; +BACTRIM DS TAB1 EAC6 PO
[2024-09-05] MEDS ORDERED: Lidocaine HCl 4% Cream 5 GM ONE (12:37)
== END 2024-09-05 23:00 | disposition home or self-care (01) ==
LOC: WOUND 02:12
DX: C44.42 Squamous cell carcinoma of skin of scalp and neck (principal); E11.22 Type 2 diabetes mellitus with diabetic chronic kidney disease; N18.2 Chronic kidney disease, stage 2 (mild); E03.9 Hypothyroidism, unspecified; Z88.8 Allergy status to other drugs, medicaments and biological substances; Z90.49 Acquired absence of other specified parts of digestive tract
CPT/HCPCS: A9270; G0463

== ENCOUNTER 2024-09-12 01:44 | Day surgery (SDC) | payer OTHER ==
[2024-09-12] MEDS ORDERED: Lidocaine HCl 4% Cream 5 GM ONE (10:18)
[2024-09-12] MEDS ORDERED: Triamcinolone Acet 0.1% Cream 15 gm ONE (10:45)
== END 2024-09-12 23:23 | disposition home or self-care (01) ==
LOC: WOUND 01:44
DX: C44.42 Squamous cell carcinoma of skin of scalp and neck (principal); E11.622 Type 2 diabetes mellitus with other skin ulcer; S11.90XD Unspecified open wound of unspecified part of neck, subsequent encounter; X58.XXXD Exposure to other specified factors, subsequent encounter
CPT/HCPCS: A9270

== ENCOUNTER 2024-09-14 05:54 | Day surgery (SDC) | payer OTHER ==
[~2024-09-14] VITALS: Ht 161 cm; Wt 54.7 kg
[2024-09-14] VITALS (9 sets, daily range): BP systolic 128–161; BP diastolic 71–94
[2024-09-14] MEDS ORDERED: Lactated Ringer's 1,000 ML IV SCH (06:35)
[2024-09-14] MEDS ORDERED: CeFAZolin Sodium 2,000 MG in NS 100 ML IV SCH (06:35)
[2024-09-14] MEDS ORDERED: Lidocaine HCl 1% 30 ML SDV INFIL ONE (06:55)
[2024-09-14] MEDS ORDERED: Lidocaine 1%-Epineph 1:200000 30 ML SDV INJ ONE (06:56)
[2024-09-14] MEDS ORDERED: propofoL 20 ML IV ONE (07:18)
[2024-09-14] MEDS ORDERED: GABAPENTIN250 MG/59 PO (07:25)
[2024-09-14] MEDS ORDERED: INSULIN AS100 UNIT/8 SC (07:26)
[2024-09-14] MEDS ORDERED: Ondansetron HCl 2 MG / ML 2ML Vial ONE (07:29)
[2024-09-14] MEDS ORDERED: Midazolam HCl 1MG / ML 2ML Vial ONE (07:30)
[2024-09-14] MEDS ORDERED: Midazolam HCl 1MG / ML 2ML Vial IV ONE (07:35)
--- NOTE | 2024-09-14 07:41 | NUR ---
History, Chart, Medications and Allergies reviewed before start of procedure. Patient up to Ambulate independently. Gait steady. Pre-Op teaching done. Pt verbalizes understanding. Patient confirms NPO status and agrees with scheduled surgery. Patient reports completing Chlorhexadine shower X2 prior to admission to hospital. Patient States Post-Procedure ride home has been arranged.
[2024-09-14] MEDS ORDERED: FentaNYL Citrate 50 MCG/ML 2 ML Injection ONE (07:50)
[2024-09-14] MEDS ORDERED: Phenylephrine HCl 100 MCG/ML-NS 10MLSYR (1MG/10ML) ONE (08:08)
[2024-09-14] MEDS ORDERED: HYDROcodone 5-APAP 325 TAB PO PRN (08:55)
--- NOTE | 2024-09-14 09:40 | NUR ---
DISCHARGE NOTE PT A&OX4, BREATHING RA, CHATTING C DAUGHTERS, NO COMPLAINTS. XRAY READ AND CONFIRMED BY DR PARKER PRIOR TO DISCHARGE. PT HAS NO PAIN OR NAUSEA. Patient up to Ambulate independently. Gait steady. Discharge instructions reviewed with patient. Patient verbalizes understanding. Copy given to patient to take home. Dressing to procedure site clean, dry, intact with no visible drainage, swelling, erythema or bruising noted. Discharged via wheelchair to private car for ride home.
== END 2024-09-14 09:35 | disposition home or self-care (01) ==
LOC: ORSCMMR 05:54 → ORD 05:54 → ORSCMMR 05:55 → ORD 07:30
PROVIDERS: Surgery
PROC: 0JH60WZ Insertion of Totally Implantable Vascular Access Device into Chest Subcutaneous Tissue and Fascia, Open Approach (ICD-10-PCS; principal; 2024-09-14 07:30)
DX: C01 Malignant neoplasm of base of tongue (principal); K21.9 Gastro-esophageal reflux disease without esophagitis; Z87.11 Personal history of peptic ulcer disease; F41.9 Anxiety disorder, unspecified; E11.22 Type 2 diabetes mellitus with diabetic chronic kidney disease; N18.2 Chronic kidney disease, stage 2 (mild); E78.5 Hyperlipidemia, unspecified; E03.9 Hypothyroidism, unspecified; M94.0 Chondrocostal junction syndrome [Tietze]; Z79.899 Other long term (current) drug therapy; Z79.4 Long term (current) use of insulin
CPT/HCPCS: 77001; 82947; C1788; J0690; J1642; J2250; J2371; J2405; J2704; J3010; J7120

== ENCOUNTER 2024-09-19 02:34 | Day surgery (SDC) | payer OTHER ==
[~2024-09-19 02:34] MED LIST changes: +GABAPENTIN250 MG/59 PO; +INSULIN AS100 UNIT/8 SC
[2024-09-19] MEDS ORDERED: Lidocaine HCl 4% Cream 5 GM ONE (11:06)
[2024-09-19] MEDS ORDERED: Triamcinolone Acet 0.1% Cream 15 gm ONE (11:26)
== END 2024-09-19 22:57 | disposition home or self-care (01) ==
LOC: WOUND 02:34
DX: C44.42 Squamous cell carcinoma of skin of scalp and neck (principal); E11.622 Type 2 diabetes mellitus with other skin ulcer
CPT/HCPCS: A9270; G0463

== ENCOUNTER 2024-09-26 00:54 | Day surgery (SDC) | payer OTHER ==
[2024-09-26] MEDS ORDERED: Lidocaine HCl 4% Cream 5 GM ONE (10:47)
[2024-09-26] MEDS ORDERED: Triamcinolone Acet 0.1% Cream 15 gm ONE (11:08)
== END 2024-09-26 23:00 | disposition home or self-care (01) ==
LOC: WOUND 00:54
DX: S11.90XD Unspecified open wound of unspecified part of neck, subsequent encounter (principal); C44.42 Squamous cell carcinoma of skin of scalp and neck; E11.622 Type 2 diabetes mellitus with other skin ulcer; X58.XXXD Exposure to other specified factors, subsequent encounter
CPT/HCPCS: A9270; G0463

== ENCOUNTER 2024-10-03 01:17 | Day surgery (SDC) | payer OTHER ==
[2024-10-03] MEDS ORDERED: Lidocaine HCl 4% Cream 5 GM ONE (11:08)
[2024-10-03] MEDS ORDERED: Triamcinolone Acet 0.1% Cream 15 gm ONE (11:09)
== END 2024-10-03 23:00 | disposition home or self-care (01) ==
LOC: WOUND 01:17
DX: C44.42 Squamous cell carcinoma of skin of scalp and neck (principal); E11.9 Type 2 diabetes mellitus without complications
CPT/HCPCS: A9270; G0463

== ENCOUNTER 2024-10-10 01:41 | Day surgery (SDC) | payer OTHER ==
[2024-10-10] MEDS ORDERED: Lidocaine HCl 4% Cream 5 GM ONE (10:14)
[2024-10-10] MEDS ORDERED: Triamcinolone Acet 0.1% Cream 15 gm ONE (10:41)
== END 2024-10-10 23:00 | disposition home or self-care (01) ==
LOC: WOUND 01:41
DX: S11.90XA Unspecified open wound of unspecified part of neck, initial encounter (principal); C44.42 Squamous cell carcinoma of skin of scalp and neck; C02.9 Malignant neoplasm of tongue, unspecified; E11.622 Type 2 diabetes mellitus with other skin ulcer; X58.XXXA Exposure to other specified factors, initial encounter
CPT/HCPCS: 36415; 80053; 85025; A9270

== ENCOUNTER → 2024-10-17 | Day surgery (SDC) | payer OTHER ==
[~2024-10-17] MED LIST changes: +Lidocaine HCl 4% Cream 5 GM ONE; +Triamcinolone Acet 0.1% Cream 15 gm ONE
== END ==
LOC: WOUND 12:49
DX: S11.90XD Unspecified open wound of unspecified part of neck, subsequent encounter (principal); C44.42 Squamous cell carcinoma of skin of scalp and neck; E11.622 Type 2 diabetes mellitus with other skin ulcer; X58.XXXD Exposure to other specified factors, subsequent encounter
CPT/HCPCS: A9270

== ENCOUNTER 2024-10-24 08:52 | Day surgery (SDC) | payer OTHER ==
[~2024-10-24 08:52] MED LIST changes: -Lidocaine HCl 4% Cream 5 GM ONE; -Triamcinolone Acet 0.1% Cream 15 gm ONE
== END 2024-10-24 23:00 | disposition home or self-care (01) ==
LOC: WOUND 08:52
DX: C44.42 Squamous cell carcinoma of skin of scalp and neck (principal); E11.622 Type 2 diabetes mellitus with other skin ulcer
CPT/HCPCS: G0463

== ENCOUNTER 2024-10-31 05:56 | Day surgery (SDC) | payer OTHER ==
[2024-10-31] MEDS ORDERED: Lidocaine HCl 4% Cream 5 GM ONE (10:48)
== END 2024-10-31 23:00 | disposition home or self-care (01) ==
LOC: WOUND 05:56
DX: S11.89XA Other open wound of other specified part of neck, initial encounter (principal); C44.42 Squamous cell carcinoma of skin of scalp and neck; E11.622 Type 2 diabetes mellitus with other skin ulcer; C02.9 Malignant neoplasm of tongue, unspecified
CPT/HCPCS: 36415; 80053; 85025; A9270; G0463

== ENCOUNTER 2024-11-07 04:05 | Day surgery (SDC) | payer OTHER | END 2024-11-07 23:21 | disposition home or self-care (01) | LOC: WOUND 04:05 | DX: C44.42 Squamous cell carcinoma of skin of scalp and neck (principal); S11.90XA Unspecified open wound of unspecified part of neck, initial encounter; E11.622 Type 2 diabetes mellitus with other skin ulcer | CPT/HCPCS: G0463 ==

== ENCOUNTER 2024-11-14 01:44 | Day surgery (SDC) | payer OTHER | END 2024-11-14 23:28 | disposition home or self-care (01) | LOC: WOUND 01:44 | DX: C44.42 Squamous cell carcinoma of skin of scalp and neck (principal); E11.622 Type 2 diabetes mellitus with other skin ulcer | CPT/HCPCS: G0463 ==

== ENCOUNTER 2024-12-05 03:24 | Day surgery (SDC) | payer OTHER ==
[2024-12-05] MEDS ORDERED: Triamcinolone Acet 0.1% Cream 15 gm ONE (11:29)
== END 2024-12-05 23:52 | disposition home or self-care (01) ==
LOC: WOUND 03:24
DX: S11.80XA Unspecified open wound of other specified part of neck, initial encounter (principal); C44.42 Squamous cell carcinoma of skin of scalp and neck; E11.622 Type 2 diabetes mellitus with other skin ulcer
CPT/HCPCS: A9270; G0463

== ENCOUNTER 2024-12-19 02:37 | Day surgery (SDC) | payer OTHER ==
[2024-12-19] MEDS ORDERED: Lidocaine HCl 4% Cream 5 GM ONE (10:27)
[2024-12-19] MEDS ORDERED: Triamcinolone Acet 0.1% Cream 15 gm ONE (10:40)
== END 2024-12-19 23:00 | disposition home or self-care (01) ==
LOC: WOUND 02:37
DX: S11.80XA Unspecified open wound of other specified part of neck, initial encounter (principal); C44.42 Squamous cell carcinoma of skin of scalp and neck; E11.622 Type 2 diabetes mellitus with other skin ulcer
CPT/HCPCS: A9270; G0463

== ENCOUNTER 2024-12-26 08:00 | Day surgery (SDC) | payer OTHER | END 2024-12-26 23:00 | disposition home or self-care (01) | LOC: WOUND 08:00 | DX: S11.80XD Unspecified open wound of other specified part of neck, subsequent encounter (principal); C44.42 Squamous cell carcinoma of skin of scalp and neck; E11.622 Type 2 diabetes mellitus with other skin ulcer | CPT/HCPCS: G0463 ==

== ENCOUNTER 2025-01-10 10:26 | Day surgery (SDC) | payer OTHER ==
[2025-01-10] MEDS ORDERED: Lidocaine HCl 4% Cream 5 GM ONE (10:42)
== END 2025-01-10 23:00 | disposition home or self-care (01) ==
LOC: WOUND 10:26
DX: S11.80XD Unspecified open wound of other specified part of neck, subsequent encounter (principal); C44.42 Squamous cell carcinoma of skin of scalp and neck; E11.622 Type 2 diabetes mellitus with other skin ulcer
CPT/HCPCS: A9270

== ENCOUNTER 2025-01-17 00:48 | Day surgery (SDC) | payer OTHER ==
[2025-01-17] MEDS ORDERED: Lidocaine HCl 4% Cream 5 GM ONE (11:09)
== END 2025-01-17 23:11 | disposition home or self-care (01) ==
LOC: WOUND 00:48
DX: S11.80XA Unspecified open wound of other specified part of neck, initial encounter (principal); C44.42 Squamous cell carcinoma of skin of scalp and neck
CPT/HCPCS: A9270; G0463

== ENCOUNTER 2025-01-18 11:22 | Day surgery (SDC) | payer OTHER ==
[2025-01-17 11:32] LABS: BASOPHILS ABSOLUTE AUTO 0.01 K/mm3 (0.00-0.23); BASOPHILS PERCENT AUTO 0 % (0-2); EOSINOPHILS ABSOLUTE AUTO 0.04 K/mm3 (0.00-0.68); EOSINOPHILS PERCENT AUTO 1 % (0-6); Hematocrit 22.8 % (33.0-51.0); Hemoglobin 7.5 g/dL (11.5-16.0); IMMATURE GRAN ABSOLUTE AUTO 0.02 K/mm3 (0.00-0.10); IMMATURE GRAN PERCENT AUTO 1 % (0-1); LYMPHOCYTES ABSOLUTE AUTO 0.67 K/mm3 (0.84-5.20); LYMPHOCYTES PERCENT AUTO 16 % (21-46); MONOCYTES ABSOLUTE AUTO 0.27 K/mm3 (0.16-1.47); MONOCYTES PERCENT AUTO 7 % (4-13); Mean Corpuscular HGB Conc 32.9 g/dL (31.5-36.5); Mean Corpuscular Volume 96 fL (80-100); NEUTROPHILS ABSOLUTE AUTO 3.16 K/mm3 (1.96-9.15); NEUTROPHILS PERCENT AUTO 76 % (41-73); NRBC ABSOLUTE 0.00 K/mm3 (0.00-0.02); NRBC Auto 0.0 /100 WBC (0.0-0.2); Platelet Count 106 K/mm3 (150-400); RDW Coefficient Variation 16.2 % (11.7-14.2); RDW Standard Deviation 56.3 fL (35.1-46.3)
[2025-01-17 12:01] LABS: Alanine Aminotransfer (ALT/SGP 13.0 U/L (12-78); Albumin, Blood 2.7 g/dL (3.4-5.0); Albumin/Globulin Ratio 0.6 (0.8-1.8); Anion Gap 8.0 mmol/L (3-11); Aspartate Aminotrans (AST/SGOT 9.0 U/L (12-37); Bilirubin, Total 0.2 mg/dL (0.1-1.0); Blood Urea Nitrogen 30.0 mg/dL (8-24); CO2, Blood 28.0 mmol/L (21-32); Calcium, Blood 9.1 mg/dL (8.5-10.1); Chloride, Blood 94.0 mmol/L (98-108); Creatinine, Blood 1.05 mg/dL (0.40-1.00); Globulin, Blood 4.5 g/dL (2.2-4.0); Glucose, Blood 155.0 mg/dL (70-99); Potassium, Blood 4.1 mmol/L (3.5-5.5); Sodium, Blood 126.0 mmol/L (136-145); Total Protein, Blood 7.2 g/dL (6.4-8.2)
[2025-01-18] MEDS ORDERED: NS 250 ML IV SCH (11:40)
[2025-01-18 13:50] VITALS: BP 146/67
[2025-01-18 14:04] VITALS: BP 134/68
[2025-01-18 15:06] VITALS: BP 146/89
== END 2025-01-18 15:34 | disposition home or self-care (01) ==
LOC: ATC 11:22 → EDSTATUS 13:30 → ATC 15:34
PROVIDERS: Internal Medicine Hematology & Oncology
DX: D64.81 Anemia due to antineoplastic chemotherapy (principal); T45.1X5A Adverse effect of antineoplastic and immunosuppressive drugs, initial encounter; C02.8 Malignant neoplasm of overlapping sites of tongue; G89.3 Neoplasm related pain (acute) (chronic); K21.9 Gastro-esophageal reflux disease without esophagitis; E03.9 Hypothyroidism, unspecified; E11.9 Type 2 diabetes mellitus without complications; E78.5 Hyperlipidemia, unspecified; S11.80XA Unspecified open wound of other specified part of neck, initial encounter; C44.42 Squamous cell carcinoma of skin of scalp and neck; Z87.891 Personal history of nicotine dependence; Z79.84 Long term (current) use of oral hypoglycemic drugs; Z79.890 Hormone replacement therapy; Z79.899 Other long term (current) drug therapy
CPT/HCPCS: 36415; 36430; 80053; 85025; 86850; 86900; 86901; 86923; A9270; G0463; J1642; J7050; P9016

== ENCOUNTER → 2025-02-01 | Outpatient (CLI) | payer OTHER ==
[2025-02-01 12:49] LABS: BASOPHILS ABSOLUTE AUTO 0.02 K/mm3 (0.00-0.23); BASOPHILS PERCENT AUTO 0 % (0-2); EOSINOPHILS ABSOLUTE AUTO 0.03 K/mm3 (0.00-0.68); EOSINOPHILS PERCENT AUTO 1 % (0-6); Hematocrit 36.3 % (33.0-51.0); Hemoglobin 12.2 g/dL (11.5-16.0); IMMATURE GRAN ABSOLUTE AUTO 0.11 K/mm3 (0.00-0.10); IMMATURE GRAN PERCENT AUTO 2 % (0-1); LYMPHOCYTES ABSOLUTE AUTO 0.82 K/mm3 (0.84-5.20); LYMPHOCYTES PERCENT AUTO 13 % (21-46); MONOCYTES ABSOLUTE AUTO 0.98 K/mm3 (0.16-1.47); MONOCYTES PERCENT AUTO 15 % (4-13); Mean Corpuscular HGB Conc 33.6 g/dL (31.5-36.5); Mean Corpuscular Volume 92 fL (80-100); NEUTROPHILS ABSOLUTE AUTO 4.59 K/mm3 (1.96-9.15); NEUTROPHILS PERCENT AUTO 70 % (41-73); NRBC ABSOLUTE 0.00 K/mm3 (0.00-0.02); NRBC Auto 0.0 /100 WBC (0.0-0.2); Platelet Count 191 K/mm3 (150-400); RDW Coefficient Variation 16.2 % (11.7-14.2); RDW Standard Deviation 54.4 fL (35.1-46.3)
== END ==
LOC: LAB SHORT 12:31 → LAB 12:31
PROVIDERS: Registered Nurse Oncology
DX: C02.8 Malignant neoplasm of overlapping sites of tongue (principal)
CPT/HCPCS: 85025

== ENCOUNTER 2025-02-06 00:39 | Day surgery (SDC) | payer OTHER | END 2025-02-06 23:00 | disposition home or self-care (01) | LOC: WOUND 00:39 | DX: C44.42 Squamous cell carcinoma of skin of scalp and neck (principal); E11.9 Type 2 diabetes mellitus without complications | CPT/HCPCS: A9270; G0463 ==

== ENCOUNTER 2025-02-20 00:29 | Day surgery (SDC) | payer OTHER ==
[2025-02-20] MEDS ORDERED: Lidocaine HCl 4% Cream 5 GM ONE (11:11)
== END 2025-02-20 23:33 | disposition home or self-care (01) ==
LOC: WOUND 00:29
DX: C44.42 Squamous cell carcinoma of skin of scalp and neck (principal); E11.9 Type 2 diabetes mellitus without complications
CPT/HCPCS: A9270; G0463

== ENCOUNTER 2025-03-03 03:48 | Day surgery (SDC) | payer OTHER ==
[2025-03-03] MEDS ORDERED: NS 250 ML IV SCH (07:25)
[2025-03-03 13:49] VITALS: BP 141/73
[2025-03-03] MEDS ORDERED: DOXYCYCLIN25 MG/5 ML PO (13:57)
[2025-03-03 14:09] VITALS: BP 130/70
[2025-03-03 15:12] VITALS: BP 161/88
[2025-03-03 15:49] VITALS: BP 155/81
== END 2025-03-03 15:45 | disposition home or self-care (01) ==
LOC: ATC 03:48
DX: D64.81 Anemia due to antineoplastic chemotherapy (principal); C02.8 Malignant neoplasm of overlapping sites of tongue; E11.9 Type 2 diabetes mellitus without complications; E78.5 Hyperlipidemia, unspecified; K21.9 Gastro-esophageal reflux disease without esophagitis; E03.9 Hypothyroidism, unspecified; Z79.899 Other long term (current) drug therapy; Z87.891 Personal history of nicotine dependence; Z88.8 Allergy status to other drugs, medicaments and biological substances; Z90.49 Acquired absence of other specified parts of digestive tract; Z90.710 Acquired absence of both cervix and uterus
CPT/HCPCS: 36430; 86850; 86900; 86901; 86923; J1642; J7050; P9016

== ENCOUNTER 2025-03-06 01:17 | Day surgery (SDC) | payer OTHER ==
[~2025-03-06 01:17] MED LIST changes: +DOXYCYCLIN25 MG/5 ML PO
== END 2025-03-06 23:00 | disposition home or self-care (01) ==
LOC: WOUND 01:17
DX: C44.42 Squamous cell carcinoma of skin of scalp and neck (principal); S11.80XA Unspecified open wound of other specified part of neck, initial encounter; E11.622 Type 2 diabetes mellitus with other skin ulcer
CPT/HCPCS: A9270; G0463

== ENCOUNTER 2025-03-09 15:33 | Inpatient (IN) | payer OTHER ==
[~2025-03-09] VITALS: Ht 160 cm; Wt 61.0 kg
[~2025-03-09 15:33] MED LIST changes: +OXYC10ER PO; -OXYC1L PO
[2025-03-09] MEDS ORDERED: NS 1,000 ML IV SCH (16:10)
[2025-03-09 16:41] LABS: BASOPHILS ABSOLUTE AUTO 0.03 K/mm3 (0.00-0.23); BASOPHILS PERCENT AUTO 0 % (0-2); EOSINOPHILS ABSOLUTE AUTO 0.19 K/mm3 (0.00-0.68); EOSINOPHILS PERCENT AUTO 2 % (0-6); Hematocrit 26.1 % (33.0-51.0); Hemoglobin 9.4 g/dL (11.5-16.0); IMMATURE GRAN ABSOLUTE AUTO 0.10 K/mm3 (0.00-0.10); IMMATURE GRAN PERCENT AUTO 1 % (0-1); LYMPHOCYTES ABSOLUTE AUTO 1.07 K/mm3 (0.84-5.20); LYMPHOCYTES PERCENT AUTO 9 % (21-46); MONOCYTES ABSOLUTE AUTO 0.94 K/mm3 (0.16-1.47); MONOCYTES PERCENT AUTO 8 % (4-13); Mean Corpuscular HGB Conc 36.0 g/dL (31.5-36.5); Mean Corpuscular Volume 88 fL (80-100); NEUTROPHILS ABSOLUTE AUTO 9.27 K/mm3 (1.96-9.15); NEUTROPHILS PERCENT AUTO 80 % (41-73); NRBC ABSOLUTE 0.00 K/mm3 (0.00-0.02); NRBC Auto 0.0 /100 WBC (0.0-0.2); Platelet Count 64 K/mm3 (150-400); RDW Coefficient Variation 16.9 % (11.7-14.2); RDW Standard Deviation 53.7 fL (35.1-46.3)
[2025-03-09 17:16] LABS: Alanine Aminotransfer (ALT/SGP 13.0 U/L (12-78); Albumin, Blood 2.8 g/dL (3.4-5.0); Albumin/Globulin Ratio 0.6 (0.8-1.8); Anion Gap 10.0 mmol/L (3-11); Aspartate Aminotrans (AST/SGOT 18.0 U/L (12-37); Bilirubin, Total 0.3 mg/dL (0.1-1.0); Blood Urea Nitrogen 31.0 mg/dL (8-24); CO2, Blood 28.0 mmol/L (21-32); Calcium, Blood 9.3 mg/dL (8.5-10.1); Chloride, Blood 79.0 mmol/L (98-108); Creatinine, Blood 0.85 mg/dL (0.40-1.00); Globulin, Blood 4.5 g/dL (2.2-4.0); Glucose, Blood 170.0 mg/dL (70-99); Potassium, Blood 4.2 mmol/L (3.5-5.5); Sodium, Blood 113.0 mmol/L (136-145); Total Protein, Blood 7.3 g/dL (6.4-8.2)
[2025-03-09] MEDS ORDERED: CeFAZolin Sodium 2,000 MG in NS 100 ML IV ONE (17:25)
[2025-03-09] MEDS ORDERED: Ondansetron HCl 2 MG / ML 2ML Vial IV PRN (20:25)
[2025-03-09] MEDS ORDERED: Darbepoetin (Pharmacy Consult) SC PRN (20:35)
[2025-03-09] MEDS ORDERED: Lactobacil 2-S.Thermo-Bifido 1 1 Cap PT SCH (21:00)
[2025-03-09 22:04] LABS: Thyroid Stimulating Hormone 23.3 uIU/mL (0.360-4.800); Uric Acid, Blood 3.7 mg/dL (2.6-6.0)
[2025-03-09 22:15] LABS: Sodium, Blood 116.0 mmol/L (136-145)
[2025-03-09 22:32] LABS: Osmolality, Serum 261.0 mos/KG (275-300)
[2025-03-09] MEDS ORDERED: ONDA4ODT PO (23:45)
[2025-03-10] VITALS (28 sets, daily range): BP systolic 133–199; BP diastolic 68–122
[2025-03-10] MEDS ORDERED: Insulin Human Lispro 100 Units/ML 3ML Syringe SC SCH
[2025-03-10 03:27] LABS: BASOPHILS ABSOLUTE AUTO 0.02 K/mm3 (0.00-0.23); BASOPHILS PERCENT AUTO 0 % (0-2); EOSINOPHILS ABSOLUTE AUTO 0.12 K/mm3 (0.00-0.68); EOSINOPHILS PERCENT AUTO 1 % (0-6); Hematocrit 23.6 % (33.0-51.0); Hemoglobin 8.4 g/dL (11.5-16.0); IMMATURE GRAN ABSOLUTE AUTO 0.11 K/mm3 (0.00-0.10); IMMATURE GRAN PERCENT AUTO 1 % (0-1); LYMPHOCYTES ABSOLUTE AUTO 0.65 K/mm3 (0.84-5.20); LYMPHOCYTES PERCENT AUTO 5 % (21-46); MONOCYTES ABSOLUTE AUTO 0.91 K/mm3 (0.16-1.47); MONOCYTES PERCENT AUTO 8 % (4-13); Mean Corpuscular HGB Conc 35.6 g/dL (31.5-36.5); Mean Corpuscular Volume 88 fL (80-100); NEUTROPHILS ABSOLUTE AUTO 10.23 K/mm3 (1.96-9.15); NEUTROPHILS PERCENT AUTO 85 % (41-73); NRBC ABSOLUTE 0.00 K/mm3 (0.00-0.02); NRBC Auto 0.0 /100 WBC (0.0-0.2); Platelet Count 66 K/mm3 (150-400); RDW Coefficient Variation 17.2 % (11.7-14.2); RDW Standard Deviation 54.7 fL (35.1-46.3)
[2025-03-10 03:43] LABS: Magnesium, Blood 1.8 mg/dL (1.6-2.4)
[2025-03-10 03:47] LABS: Albumin, Blood 2.6 g/dL (3.4-5.0); Anion Gap 12 mmol/L (3-11); Blood Urea Nitrogen 33 mg/dL (8-24); CO2, Blood 25 mmol/L (21-32); Calcium, Blood 8.5 mg/dL (8.5-10.1); Chloride, Blood 86 mmol/L (98-108); Creatinine, Blood 0.85 mg/dL (0.40-1.00); Glucose, Blood 228 mg/dL (70-99); Phosphorus, Blood 2.9 mg/dL (2.5-4.9); Potassium, Blood 4.2 mmol/L (3.5-5.5); Sodium, Blood 119 mmol/L (136-145)
[2025-03-10] MEDS ORDERED: CeFAZolin Sodium 2,000 MG in NS 100 ML IV SCH (04:00)
--- NOTE | 2025-03-10 04:27 | NUR ---
ASSUMED CARE @0038 GOT REPORT FROM JEMAL HORVATH FROM ED @1202 AND PATIENT ARRIVED @0038 TO ICU. PATEINT'S DAUGHTER IN LAW WITH HER. PATIENT REFUSES INTERPERTER AND WANTS DAUGHTER IN LAW TO STAY WITH HER AT ALL TIME. DAUGHTER IN [place] IN ETHICS OFFICER AT HOME. PATIENT REFUSED TO CHANGE FROM OWN CLOTHES TO HOSPITAL GOWN. CALL LIGHT WITHIN REACH.
--- NOTE | 2025-03-10 06:04 | NUR ---
SHIFT SUMMARY PATIENT A&O X4 BUT FRISIAN IS SECOND LANGUAGE. DAUGHTER IN LAW INTERPERTS FOR HER. PATIENT REFUSES INTERPERTER. PATIENT ARRIVED TO ICU @0030 I OWN CLOTHES PATIENT REFUSES TO WEAR HOSPITAL GOWN. PATIENT HAS BANDAGE AROUND NECK, PATIENT REFUSES TO LET NURSE TAKE OFF UNTIL AM WHEN DAUGHTER IN LAW USUALLY CHNAGES TWICE A DAY AND WANTS STAFF TO WAIT TILL MORNING. PATIENT HAS HISTORY OF TINGUE CANCER AND CAN ONLY OPEN MOUTH A TINY BIT BUT CAN FIT SUCTION IN AND SUCTION OWN MOUTH. AFTER PATIENT SUCTIONED MOUTH SMALL AMOUNT OF RAVINDRA RED BLOOD IN SUCTION TIP. DAUGHTER IN LAW SAYS IT IS NORMAL. PATIENT ABLE TO WALK TO TOILET IN ROOM. PATIENT HAS G TUBE AND IS NPO. HR IN THE 120'S AND SBP 150-160'S. ISOLATION FOR ESBL IN URINE. PATIENT HAS A 24G RIGHT WRIST IV AND A LEFT SIDE MEDIPORT WITH SODIUM CHLORIDE 0.03% INFUSING @30MLS/HR. ON A FLUID RESTRICTION OF LESS THAN [address] XIE. BLOOD SUGAR Q6 WITH LOW SLIDING SCALE. CALL LIGHT WITHIN REACH.
[2025-03-10] MEDS ORDERED: Enoxaparin 40 MG/0.4 ML SYR SC SCH (09:00)
--- NOTE | 2025-03-10 17:40 | NUR ---
SHIFT SUMMARY NO ACUTE CHANGES THIS SHIFT. PT HAS REMAINED ALERT AND ORIENTED WHEN AWAKE. PT AWAKENS EASILY TO VERBAL STIMULI. PT DAUGHTER IN LAW HAS REMAINED AT BEDSIDE TO ASSIST PT WITH TRANSLATION. PT MED PER EMAR FOR NECK PAIN. PT WITH DRESSING CHANGE DONE TO NECK WOUND BY DAUGHTER IN LAW WITH RN PRESENT PER PT REQUEST. PT NPO DUE TO NECK WOUND. PEG TUBE IN PLACE, C/D/I. PT RECIEVES BOLUS TUBE FEEDINGS PER HOME REGIMEN BY DAUGHTER IN LAW. MEDIPORT C/D/I, SALINE LOCKED AT THIS TIME. PT UP TO VOID WITH MINIMAL ASSISTANCE THIS SHIFT. VITAL SIGNS STABLE. WILL CONTINUE TO MONITOR AND REPORT OFF TO ONCOMING RN.
--- NOTE | 2025-03-10 20:00 | NUR ---
ASSUMPTION OF CARE: ASSUMED CARE AT START OF SHIFT (1899). REPORT RECEIVED FROM DAY SHIFT RN. PT IS DOING WELL AND RESTING IN BED. PT IS ALERT AND FOLLOWING COMMANDS, PT DOES NOT SPEAK HUNGARIAN BUT CAN UNDERSTAND SOME HUNGARIAN. FAMILY IS PRESENT AND ABLE TO TRANSLATE FOR THE PT. PT HAS BEEN REFUSING TO USE METAL TANK ERECTOR VIA, PT HAS MASS ON NECK WHICH MAKES IT DIFFICULT FOR THE PT TO TALK. LUNG SOUNDS ARE CLEAR AND EQUAL, ON RA WITH SPO2 >95%. SINUS TACH, SBP: 140-150'S MAP >65 HR: 100'S. IV: MEDIPORT IN L UPPER CHEST, PERIPHERAL IN R FOREARM. CANCEROUS MASS ON PT'S NECK THAT IS COVERED WITH WOUND DRESSING. PEG TUBE IN ABDOMEN. LINES AND CORDS PLACED OUT OF REACH. CALL LIGHT PLACED WITHIN REACH. PT IS ABLE TO MAKE NEEDS KNOWN AND CAN AMBULATE AND USE RESTROOM VIA 1-PERSON ASSIST.
[2025-03-11] VITALS (9 sets, daily range): BP systolic 149–171; BP diastolic 78–102
[2025-03-11 04:14] LABS: Hematocrit 25.5 % (33.0-51.0); Hemoglobin 9.0 g/dL (11.5-16.0)
[2025-03-11 04:30] LABS: Albumin, Blood 2.7 g/dL (3.4-5.0); Anion Gap 9 mmol/L (3-11); Blood Urea Nitrogen 32 mg/dL (8-24); CO2, Blood 26 mmol/L (21-32); Calcium, Blood 8.4 mg/dL (8.5-10.1); Chloride, Blood 93 mmol/L (98-108); Creatinine, Blood 0.75 mg/dL (0.40-1.00); Glucose, Blood 296 mg/dL (70-99); Magnesium, Blood 1.8 mg/dL (1.6-2.4); Phosphorus, Blood 2.5 mg/dL (2.5-4.9); Potassium, Blood 4.2 mmol/L (3.5-5.5); Sodium, Blood 124 mmol/L (136-145)
[2025-03-11] MEDS ORDERED: Sodium Phosphate 10 MM in NS 250 ML IV ONE (05:30)
--- NOTE | 2025-03-11 06:44 | NUR ---
SHIFT SUMMARY: PT IS DOING WELL AND RESTING IN BED. PT'S HR: 120-140'S SBP: 130-150'S MAP >65 PT STATES THAT THEY HR IS ALWAYS IN THE 130'S. PT DENIES ANY CP OR SOB THROUHOUT THE SHIFT. PT DOES HAVE NECK PAIN AND IS RECEIVING PAIN MEDS PER EMR ORDERS. PT'S NA+ LEVELS REMAIN LOW AND THEY GETTING SODIUM REPLACEMENT PER EMR ORDERS. PT IS ABLE AMBULATE AND USE TOILET VIA 1-PERSON ASSIST AND WILL PRESS CALL LIGHT WHEN THEY NEED ASSISTANCE.
[2025-03-11] MEDS ORDERED: UREA 15 GM POWD.PACK PO SCH (08:00)
[2025-03-11 08:01] LABS: BASOPHILS ABSOLUTE AUTO 0.02 K/mm3 (0.00-0.23); BASOPHILS PERCENT AUTO 0 % (0-2); EOSINOPHILS ABSOLUTE AUTO 0.12 K/mm3 (0.00-0.68); EOSINOPHILS PERCENT AUTO 1 % (0-6); Hematocrit 26.0 % (33.0-51.0); Hemoglobin 9.0 g/dL (11.5-16.0); IMMATURE GRAN ABSOLUTE AUTO 0.07 K/mm3 (0.00-0.10); IMMATURE GRAN PERCENT AUTO 1 % (0-1); LYMPHOCYTES ABSOLUTE AUTO 0.64 K/mm3 (0.84-5.20); LYMPHOCYTES PERCENT AUTO 6 % (21-46); MONOCYTES ABSOLUTE AUTO 0.78 K/mm3 (0.16-1.47); MONOCYTES PERCENT AUTO 8 % (4-13); Mean Corpuscular HGB Conc 34.6 g/dL (31.5-36.5); NEUTROPHILS ABSOLUTE AUTO 8.49 K/mm3 (1.96-9.15); NEUTROPHILS PERCENT AUTO 84 % (41-73); NRBC ABSOLUTE 0.00 K/mm3 (0.00-0.02); NRBC Auto 0.0 /100 WBC (0.0-0.2); Platelet Count 62 K/mm3 (150-400); RDW Coefficient Variation 17.5 % (11.7-14.2); RDW Standard Deviation 58.7 fL (35.1-46.3)
[2025-03-11 08:14] LABS: Mean Corpuscular Volume 93 fL (80-100)
[2025-03-11] MEDS ORDERED: NS 250 ML IV PRN (13:20)
--- NOTE | 2025-03-11 21:12 | NUR ---
ASSUMPTION OF CARE: ASSUMED CARE AT START OF SHIFT (1899). REPORT RECEIVED FROM DAY SHIFT RN. PT IS DOING WELL AND RESTING IN BED, FAMILY IS AT BEDSIDE TO HELP TRANSLATE. PT IS ALERT AND FOLLOWING CAOMMANDS. PT STATES HAVING 7/10 NECK PAIN BUT NO CP OR SOB AT THIS TIME. LUNG SOUNDS HAVE BEEN CLEAR AND EQUAL BILATERALLY, ON RA WITH SPO2 >95%. SINUS TACH WITH SBP: 140-150'S MAP >65 HR: 130'S. IV: MEDIPORT IN L UPPER CHEST. G-TUBE IN ABDOMEN AND CLAMPPED. PT IS ABLE TO AMBULATE WITH MINIMAL ASSISTANCE. LINES AND CORDS PLACED OUT OF REACH. CALL LIGHT PLACED WITHIN REACH.
[2025-03-12] VITALS (8 sets, daily range): BP systolic 139–166; BP diastolic 79–132
[2025-03-12 04:41] LABS: BASOPHILS ABSOLUTE AUTO 0.02 K/mm3 (0.00-0.23); BASOPHILS PERCENT AUTO 0 % (0-2); EOSINOPHILS ABSOLUTE AUTO 0.09 K/mm3 (0.00-0.68); EOSINOPHILS PERCENT AUTO 1 % (0-6); Hematocrit 29.6 % (33.0-51.0); Hemoglobin 10.2 g/dL (11.5-16.0); IMMATURE GRAN ABSOLUTE AUTO 0.06 K/mm3 (0.00-0.10); IMMATURE GRAN PERCENT AUTO 1 % (0-1); LYMPHOCYTES ABSOLUTE AUTO 0.51 K/mm3 (0.84-5.20); LYMPHOCYTES PERCENT AUTO 6 % (21-46); MONOCYTES ABSOLUTE AUTO 0.69 K/mm3 (0.16-1.47); MONOCYTES PERCENT AUTO 8 % (4-13); Mean Corpuscular HGB Conc 34.5 g/dL (31.5-36.5); Mean Corpuscular Volume 92 fL (80-100); NEUTROPHILS ABSOLUTE AUTO 7.02 K/mm3 (1.96-9.15); NEUTROPHILS PERCENT AUTO 84 % (41-73); NRBC ABSOLUTE 0.00 K/mm3 (0.00-0.02); NRBC Auto 0.0 /100 WBC (0.0-0.2); Platelet Count 60 K/mm3 (150-400); RDW Coefficient Variation 17.7 % (11.7-14.2); RDW Standard Deviation 58.8 fL (35.1-46.3)
[2025-03-12 05:03] LABS: Albumin, Blood 2.9 g/dL (3.4-5.0); Anion Gap 11 mmol/L (3-11); Blood Urea Nitrogen 58 mg/dL (8-24); CO2, Blood 25 mmol/L (21-32); Calcium, Blood 9.5 mg/dL (8.5-10.1); Chloride, Blood 99 mmol/L (98-108); Creatinine, Blood 0.85 mg/dL (0.40-1.00); Glucose, Blood 287 mg/dL (70-99); Magnesium, Blood 2.0 mg/dL (1.6-2.4); Phosphorus, Blood 3.0 mg/dL (2.5-4.9); Potassium, Blood 4.4 mmol/L (3.5-5.5); Sodium, Blood 131 mmol/L (136-145)
[2025-03-12] MEDS ORDERED: Insulin Glargine-Yfgn 100 Unit/mL 3 ML SYR SC SCH (06:35)
--- NOTE | 2025-03-12 06:42 | NUR ---
SHIFT SUMMARY: PT IS DOING WELL AND RESTING IN BED. PT'S VITAL SIGNS HAVE BEEN STABLE. PT'S BG RANGING FROM 340-380'S. DR. JAFFE NOTIFIED AND LONG ACTING INSULIN HAS BEEN STARTED PER EMR ORDERS. PT IS ABLE TO AMBULATE AND USE TOILET WITH 1-PERSON ASSSIT. LINES AND CORDS PLACED OUT OF REACH. CALL LIGHT PLACED WITHIN REACH.
[2025-03-12] MEDS ORDERED: Insulin Human Lispro 100 Units/ML 3ML Syringe SC SCH (07:30)
[2025-03-12] MEDS ORDERED: Insulin Glargine 100 Unit/ML 3 ML SYR SC SCH (09:00)
--- NOTE | 2025-03-12 09:25 | NUR ---
DR. XIE TO ROOM FOR PT EVAL.
--- NOTE | 2025-03-12 12:00 | NUR ---
PROVIDER UPDATE DR. DE LA CRUZ CALLED REGARDING PT CBG OF 366. VERBAL ORDER TO RECHECK SUGAR AT 1400. CAR STORER ALSO STS TO HEPARIN LOCK MED-PORT WHEN NOT IN USE.
[2025-03-12] MEDS ORDERED: SODCHL1 PO (17:26)
[2025-03-12] MEDS ORDERED: UREAPRO454 GM PO (17:31)
[2025-03-12] MEDS ORDERED: Cefadroxil500 MG PO (17:33)
--- NOTE | 2025-03-12 18:44 | NUR ---
PT DISCHARGED AT 1840 W/V DIRECTIONS DISCUSSED AND REIFORCED W/ PT DAUGHTER IN LAW. PT DAUGHTER VERBALIZED UNDERSTANDING OF FOLLOW UP CARE AND APPTS. PT TO SEE DR. XIE ON 03/14 AT 1130 IN OFFICE- ADDRESS PROVIDED. PT TO FOLLOW UP W/ [facility] W/IN 7 DAYS. RETURN TO ER DIRECTIONS DISCUSSED. NEW MEDICATIONS DISCUSSED AND RX FAXED TO [facility]. PT MEDPORT DEACCESSED. HEPARIN FLUSHED PRIOR TO DC. VITALS OBTAINED AND STABLE. PT AND FAMILY DENY FURTHER NEEDS AND PT LEAVES VIA W/C WITH FAMILY
[2025-03-12] MEDS ORDERED: UREA 15 GM POWD.PACK PO SCH (21:00)
== END 2025-03-12 18:54 | disposition home or self-care (01) | DRG 641 ==
LOC: ER 15:33 → ICUE 20:20
PROVIDERS: Internal Medicine; Internal Medicine Nephrology; Nurse Practitioner Acute Care; Physician Assistant; ADMIT Internal Medicine
DX: E87.1 Hypo-osmolality and hyponatremia (principal); N17.9 Acute kidney failure, unspecified; N18.2 Chronic kidney disease, stage 2 (mild); D63.1 Anemia in chronic kidney disease; E88.09 Other disorders of plasma-protein metabolism, not elsewhere classified; E11.22 Type 2 diabetes mellitus with diabetic chronic kidney disease; E03.9 Hypothyroidism, unspecified; R10.13 Epigastric pain; C02.9 Malignant neoplasm of tongue, unspecified; C44.42 Squamous cell carcinoma of skin of scalp and neck; E79.0 Hyperuricemia without signs of inflammatory arthritis and tophaceous disease; B99.8 Other infectious disease; J20.9 Acute bronchitis, unspecified; Z87.11 Personal history of peptic ulcer disease; Z93.1 Gastrostomy status; Z79.890 Hormone replacement therapy; Z79.4 Long term (current) use of insulin; Z87.891 Personal history of nicotine dependence
CPT/HCPCS: 36415; 70487; 76770; 80053; 80069; 82947; 83605; 83735; 83930; 83935; 84295; 84300; 84443; 84550; 85014; 85018; 85025; 87040; 93005; 93010; 96361; 96365-59; 99285-25; A9270; J0690; J1642; J1650; J1815; J7030; J7050; Q9967

== ENCOUNTER 2025-03-20 14:19 | Inpatient (IN) | payer OTHER ==
[~2025-03-20] VITALS: Ht 157.5 cm; Wt 86.2 kg
[~2025-03-20 14:19] MED LIST changes: +Cefadroxil500 MG PO; +ONDA4ODT PO; +SODCHL1 PO; +UREAPRO454 GM PO
[2025-03-20 15:06] LABS: BASOPHILS ABSOLUTE AUTO 0.03 K/mm3 (0.00-0.23); BASOPHILS PERCENT AUTO 0 % (0-2); EOSINOPHILS ABSOLUTE AUTO 0.08 K/mm3 (0.00-0.68); EOSINOPHILS PERCENT AUTO 1 % (0-6); Hematocrit 23.2 % (33.0-51.0); Hemoglobin 7.6 g/dL (11.5-16.0); IMMATURE GRAN ABSOLUTE AUTO 0.47 K/mm3 (0.00-0.10); IMMATURE GRAN PERCENT AUTO 4 % (0-1); LYMPHOCYTES ABSOLUTE AUTO 1.24 K/mm3 (0.84-5.20); LYMPHOCYTES PERCENT AUTO 11 % (21-46); MONOCYTES ABSOLUTE AUTO 1.28 K/mm3 (0.16-1.47); MONOCYTES PERCENT AUTO 12 % (4-13); Mean Corpuscular HGB Conc 32.8 g/dL (31.5-36.5); Mean Corpuscular Volume 98 fL (80-100); NEUTROPHILS ABSOLUTE AUTO 8.05 K/mm3 (1.96-9.15); NEUTROPHILS PERCENT AUTO 72 % (41-73); NRBC ABSOLUTE 0.00 K/mm3 (0.00-0.02); NRBC Auto 0.0 /100 WBC (0.0-0.2); Platelet Count 172 K/mm3 (150-400); RDW Coefficient Variation 18.5 % (11.7-14.2); RDW Standard Deviation 65.1 fL (35.1-46.3)
[2025-03-20 15:23] LABS: Prothrombin Time Results 10.9 Sec (9.7-11.5)
[2025-03-20 15:39] LABS: Alanine Aminotransfer (ALT/SGP 10.0 U/L (12-78); Albumin, Blood 2.8 g/dL (3.4-5.0); Albumin/Globulin Ratio 0.6 (0.8-1.8); Anion Gap 12.0 mmol/L (3-11); Aspartate Aminotrans (AST/SGOT 14.0 U/L (12-37); Bilirubin, Total 0.2 mg/dL (0.1-1.0); Blood Urea Nitrogen 33.0 mg/dL (8-24); CO2, Blood 26.0 mmol/L (21-32); Calcium, Blood 10.7 mg/dL (8.5-10.1); Chloride, Blood 95.0 mmol/L (98-108); Creatinine, Blood 0.91 mg/dL (0.40-1.00); Globulin, Blood 4.6 g/dL (2.2-4.0); Glucose, Blood 156.0 mg/dL (70-99); Magnesium, Blood 1.9 mg/dL (1.6-2.4); Phosphorus, Blood 2.2 mg/dL (2.5-4.9); Potassium, Blood 4.4 mmol/L (3.5-5.5); Sodium, Blood 129.0 mmol/L (136-145); Total Protein, Blood 7.4 g/dL (6.4-8.2)
[2025-03-20] MEDS ORDERED: Dexamethasone Sod Phos 10 MG/ML 1ML VIAL IV ONE (17:50)
[2025-03-20] MEDS ORDERED: FLU VACC TS2025-26(6MOS UP)/PF 45 MCG/0.5 ML SYRINGE IM ONE (18:40)
[2025-03-20] MEDS ORDERED: Ondansetron HCl 2 MG / ML 2ML Vial IV PRN (18:40)
[2025-03-20] MEDS ORDERED: Morphine Sulfate 10 MG/ML 1MLSYR INH PRN (18:45)
[2025-03-20] MEDS ORDERED: Haloperidol Lactate Inj. 5 MG/ML Injection IV PRN (18:45)
[2025-03-20] MEDS ORDERED: Morphine Sulfate 10 MG/ML 1MLSYR IV PRN (18:45)
[2025-03-20] MEDS ORDERED: RX Prepack 6 Tabs Oxycodone 5mg UD ONE (20:30)
[2025-03-20 21:00] VITALS: BP 158/90
== END 2025-03-20 20:47 | disposition home or self-care (01) | DRG 147 ==
LOC: ER 14:19 → ERHOLD 17:03
PROVIDERS: Student in an Organized Health Care Education/Training Program; ADMIT Hospitalist
DX: C02.0 Malignant neoplasm of dorsal surface of tongue (principal); C77.0 Secondary and unspecified malignant neoplasm of lymph nodes of head, face and neck; I87.1 Compression of vein; C79.89 Secondary malignant neoplasm of other specified sites; I96 Gangrene, not elsewhere classified; E87.1 Hypo-osmolality and hyponatremia; Z51.5 Encounter for palliative care; Z66 Do not resuscitate; N18.2 Chronic kidney disease, stage 2 (mild); E03.9 Hypothyroidism, unspecified; E11.22 Type 2 diabetes mellitus with diabetic chronic kidney disease; I89.0 Lymphedema, not elsewhere classified; L98.499 Non-pressure chronic ulcer of skin of other sites with unspecified severity; E87.8 Other disorders of electrolyte and fluid balance, not elsewhere classified; E83.52 Hypercalcemia; D63.0 Anemia in neoplastic disease; E83.39 Other disorders of phosphorus metabolism; G89.3 Neoplasm related pain (acute) (chronic); Z92.3 Personal history of irradiation; Z85.828 Personal history of other malignant neoplasm of skin; Z87.891 Personal history of nicotine dependence; Z79.4 Long term (current) use of insulin; Z79.890 Hormone replacement therapy; Z79.891 Long term (current) use of opiate analgesic
CPT/HCPCS: 71260; 80053; 83605; 83735; 84100; 85025; 85610; 85730; 93005; 93010; 96374-59; 99285-25; A6590; A9270; J1100; J1642; J2270; Q9967

== ENCOUNTER 2025-03-22 13:50 | Emergency (ER) | payer OTHER ==
[~2025-03-22] VITALS: Ht 160 cm; Wt 59.9 kg
[2025-03-22 13:58] VITALS: BP 116/51
[2025-03-22] MEDS ORDERED: Dexamethasone Sod Phos 10 MG/ML 1ML VIAL IV ONE (14:15)
[2025-03-22] MEDS ORDERED: Morphine Sulfate 4 MG/1 ML Injection IV ONE (14:20)
[2025-03-22] MEDS ORDERED: Dexamethas10 MG/1 M1 UD (15:19)
== END 2025-03-22 15:53 | disposition home or self-care (01) ==
LOC: ER 13:50
DX: R06.1 Stridor (principal); E03.9 Hypothyroidism, unspecified; E11.9 Type 2 diabetes mellitus without complications; E78.5 Hyperlipidemia, unspecified; Z79.4 Long term (current) use of insulin; Z79.890 Hormone replacement therapy; Z79.899 Other long term (current) drug therapy; Z87.891 Personal history of nicotine dependence
CPT/HCPCS: 96374; 96375; 99281-25; J1100; J2270